=== PATIENT | female | born 1970 | race Caucasian/White ===

== ENCOUNTER 2017-01-12 08:50 | Emergency (ER) | payer OTHER ==
[~2017-01-12] VITALS: Ht 160 cm; Wt 93.0 kg
[~2017-01-12 08:50] MED LIST: /AMIT100TA PO; /DULO30CA; /DULO30CA OR; ABIL2TAB OR; AMIT50TA4 PO; ASACOL; CALCCHW12; CALCCHW12 OR; CETI10TA OR; FOLI1TAB2 PO; FOLI5INJ2 SC; LYRI75CA OR; METH1INJ PO; METH2.5TA PO; MULTIVIT OR; PRED20TA; PRENATAL VIT; TYLENOL #3; TYLENOL #3 OR; XANA0.5T; XANA0.5T OR; XANA0.5T PO; ZOLO50TA
[2017-01-12] MEDS ORDERED: HYDR-3713 PO (09:26)
[2017-01-12] MEDS ORDERED: DULO30CA PO (09:26)
[2017-01-12] MEDS ORDERED: REFR0.5D8 OP (09:26)
[2017-01-12] MEDS ORDERED: ZYRT10CA PO (09:26)
[2017-01-12] MEDS ORDERED: FLUT1LOT EX (09:26)
[2017-01-12] MEDS ORDERED: OMEP40CA2 PO (09:26)
[2017-01-12] MEDS ORDERED: METH2.5TA PO (09:26)
[2017-01-12] MEDS ORDERED: XANA0.5T PO (09:26)
[2017-01-12] MEDS ORDERED: REGL10TA6 PO (09:26)
[2017-01-12] MEDS ORDERED: FOLI800C PO (09:26)
[2017-01-12] MEDS ORDERED: KETO10TAB PO (09:26)
[2017-01-12] MEDS ORDERED: INFL10VL IV (09:26)
[2017-01-12] MEDS ORDERED: AMIT100TA PO (09:26)
[2017-01-12] MEDS ORDERED: IPRATROPIUM 0.5MG/ALBUTEROL 2.5MG INH SOL UD 3ML (DUONEB)(J7620) NEB ONE (10:00)
[2017-01-12] MEDS ORDERED: PERCOCET 5MG/325MG TAB PO ONE (10:00)
[2017-01-12] MEDS ORDERED: predniSONE 20 MG TAB PO ONE (10:00)
[2017-01-12 10:33] VITALS: BP 132/62
--- NOTE | 2017-01-12 10:37 | REP ---
REASON: Cough COMPARISON: Multiple, the latest is 10/27/2016. The lung scott are clear and stable. The heart is not enlarged. Since the last examination, left hilar fullness has developed. The osseous structures are stable and intact. IMPRESSION: Development of left hilar fullness of uncertain etiology. If clinically relevant, obtain contrast enhanced chest CT. Signed by Leland Arvizu DO 01/12/2017 11:42 A
[2017-01-12] MEDS ORDERED: GUAISYP5 PO (10:52)
[2017-01-12] MEDS ORDERED: PRED20TA PO (10:52)
--- NOTE | 2017-01-13 14:07 | ED PDOC ---
Provider Note cxr report faxed to [facility] for fu Shayy Richard MD Jan 13, 2017 14:07
== END 2017-01-12 10:57 | disposition home or self-care (01) ==
LOC: M ED 08:50
DX: J20.9 Acute bronchitis, unspecified (principal); J06.9 Acute upper respiratory infection, unspecified; G89.29 Other chronic pain; D68.62 Lupus anticoagulant syndrome; M79.7 Fibromyalgia; K21.9 Gastro-esophageal reflux disease without esophagitis; J30.81 Allergic rhinitis due to animal (cat) (dog) hair and dander; Z79.899 Other long term (current) drug therapy; Z79.52 Long term (current) use of systemic steroids; F17.210 Nicotine dependence, cigarettes, uncomplicated

== ENCOUNTER → 2017-01-19 | Outpatient (REF) | payer OTHER ==
[~2017-01-19] MED LIST changes: +AMIT100TA PO; +DULO30CA PO; +FLUT1LOT EX; +FOLI800C PO; +GUAISYP5 PO; +HYDR-3713 PO; +INFL10VL IV; +KETO10TAB PO; +OMEP40CA2 PO; +PRED20TA PO; +REFR0.5D8 OP; +REGL10TA6 PO; +ZYRT10CA PO
== END ==
LOC: M LAB REF 11:54
PROVIDERS: ATTEND Physician Assistant Medical
DX: R50.9 Fever, unspecified (principal)

== ENCOUNTER → 2017-02-28 | Outpatient (CLI) | payer OTHER ==
[~2017-02-28] VITALS: Ht 160 cm; Wt 105.2 kg
[~2017-02-28] MED LIST changes: +B-1250TA3 PO; +FOLI5INJ2 PO; +NS 1,000 ML IV SCH; -REFR0.5D8 OP; +REFR0.5D8 OU; +[UNRECOGNIZED DRUG - CODE] PO
--- NOTE | 2017-02-28 13:00 | ROOR ---
Patient Name: Jen Izaguirre Procedure Date: 02/28/2017 12:46 PM Date of : 1970 Age: 46 Room: [facility] Gender: Female Note Status: Finalized Procedure: Upper GI endoscopy + Biopsies Indications: Heartburn, Diarrhea Providers: Tommy Butler MD Referring MD: Valentino CORONEL MD Requesting Provider: Medicines: Monitored Anesthesia Care Complications: No immediate complications. Procedure: Pre-Anesthesia Assessment: - The heart rate, respiratory rate, oxygen saturations, blood pressure, adequacy of pulmonary ventilation, and response to care were monitored throughout the procedure. The Endoscope was introduced through the mouth, and advanced to the second part of duodenum. The upper GI endoscopy was accomplished without difficulty. The patient tolerated the procedure well. Findings: The Z-line was irregular and was found 35 cm from the incisors. Multiple biopsies were obtained with cold forceps for evaluation to rule out Barboza's Esophagus randomly at the gastroesophageal junction. A medium-sized hiatal hernia was present. No other significant abnormalities were identified in a careful examination of the stomach. The exam of the duodenum was otherwise normal. Biopsies for histology were taken with a cold forceps in the first portion of the duodenum and in the second portion of the duodenum for evaluation of celiac disease. The exam was otherwise without abnormality. Impression: - Z-line irregular, 35 cm from the incisors. - Medium-sized hiatal hernia. - The examination was otherwise normal. - Multiple biopsies were obtained at the gastroesophageal junction. - Biopsies were taken with a cold forceps for evaluation of celiac disease. Recommendation: - Patient has a contact number available for emergencies. The signs and symptoms of potential delayed complications were discussed with the patient. Return to normal activities tomorrow. Written discharge instructions were provided to the patient. - High fiber diet. - Discharge patient to home. - Continue present medications. - Await pathology results. - Return to referring physician. - Check Portal Online for Path Results.([email or web address]) - The findings and recommendations were discussed with the patient's family. Tommy Butler MD Tommy Butler MD 02/28/2017 1:00:41 PM This report has been signed electronically. Number of Addenda: 0 Note Initiated On: 02/28/2017 12:46 PM Estimated Blood Loss: Estimated blood loss: none.
--- NOTE | 2017-02-28 13:24 | ROOR ---
Patient Name: Jen Izaguirre Procedure Date: 02/28/2017 12:47 PM Date of : 1970 Age: 46 Room: [facility] Gender: Female Note Status: Finalized Procedure: Colonoscopy to Cecum + ileoscopy + Biopsies Indications: Abdominal pain in the right lower quadrant, Diarrhea Providers: Tommy Butler MD Referring MD: Valentino CORONEL MD Requesting Provider: Medicines: Monitored Anesthesia Care Complications: No immediate complications. Procedure: Pre-Anesthesia Assessment: - The heart rate, respiratory rate, oxygen saturations, blood pressure, adequacy of pulmonary ventilation, and response to care were monitored throughout the procedure. The Colonoscope was introduced through the anus and advanced to the cecum, identified by appendiceal orifice and ileocecal valve. The colonoscopy was performed without difficulty. The patient tolerated the procedure well. The quality of the bowel preparation was excellent. Findings: The perianal and digital rectal examinations were normal. Non-bleeding internal hemorrhoids were found during retroflexion. The hemorrhoids were small and Grade I (internal hemorrhoids that do not prolapse). No other significant abnormalities were identified in a careful examination of the remainder of the colon. Background biopsies were taken for histology with a cold forceps from the ascending colon, transverse colon, descending colon and rectosigmoid colon. These biopsy specimens were sent to Pathology. The exam was otherwise without abnormality on direct and retroflexion views. Impression: - Non-bleeding internal hemorrhoids. - The examination was otherwise normal on direct and retroflexion views. - Background biopsies were taken from the ascending colon, transverse colon, descending colon and rectosigmoid colon. - The exam was otherwise normal to the cecum. - Ileal ulcer with clean base. Recommendation: - Discharge patient to home. - Continue present medications. - Await pathology results. - Check Portal Online for Path Results.([email or web address]) - Return to referring physician. - The findings and recommendations were discussed with the patient's family. Tommy Butler MD Tommy Butler MD 02/28/2017 1:23:52 PM This report has been signed electronically. Number of Addenda: 0 Note Initiated On: 02/28/2017 12:47 PM Estimated Blood Loss: Estimated blood loss: none.
[2017-02-28 13:37] VITALS: BP 150/71
== END | disposition home or self-care (01) ==
LOC: M OPP 12:12
PROVIDERS: ATTEND Internal Medicine Gastroenterology
DX: R10.31 Right lower quadrant pain (principal); R19.7 Diarrhea, unspecified; K64.0 First degree hemorrhoids; R12 Heartburn; K22.8 Other specified diseases of esophagus; K44.9 Diaphragmatic hernia without obstruction or gangrene; K51.90 Ulcerative colitis, unspecified, without complications; R23.3 Spontaneous ecchymoses; M06.9 Rheumatoid arthritis, unspecified; M54.9 Dorsalgia, unspecified; M79.7 Fibromyalgia; M32.9 Systemic lupus erythematosus, unspecified; F41.9 Anxiety disorder, unspecified; G43.909 Migraine, unspecified, not intractable, without status migrainosus; R06.83 Snoring; Z87.891 Personal history of nicotine dependence; Z91.048 Other nonmedicinal substance allergy status; Z79.899 Other long term (current) drug therapy; Z80.9 Family history of malignant neoplasm, unspecified

== ENCOUNTER → 2017-03-14 | Outpatient (REF) | payer OTHER ==
[~2017-03-14] MED LIST changes: -NS 1,000 ML IV SCH
== END ==
LOC: M LAB REF 16:19
PROVIDERS: ATTEND Physician Assistant
DX: J02.9 Acute pharyngitis, unspecified (principal)

== ENCOUNTER → 2017-04-27 | Outpatient (CLI) | payer OTHER ==
[~2017-04-27] MED LIST changes: +CLEO300C2 PO
--- NOTE | 2017-04-27 22:27 | ECGEPIP ---
Stationary ECG Study [facility] Test Date: 2017-04-27 Pat Name: RONALD VANEGAS Department: Room: - Gender: F Branch Manager: RF : 1970 Requested By: Valentino Huynh Order Number: [id number] Reading MD: Haroon Ram Measurements Intervals [place] Rate: 101 P: 68 W[place]: 149 QRS: 56 QRSD: 89 T: 51 QT: 347 QTc: 452 Interpretive Statements Sinus tachycardia Minor repolarization abnormalities Comparison tracing not available Electronically Signed On 04-27-2017 22:27:20 EDT by Haroon Ram
== END ==
LOC: M EKG 11:19
PROVIDERS: ATTEND Family Medicine Addiction Medicine
DX: R06.09 Other forms of dyspnea (principal)

== ENCOUNTER → 2017-04-27 | Outpatient (REF) | payer OTHER ==
[2017-04-27 14:06] LABS: ALBUMIN 3.4 GM/DL (3.2-5.2); ALKALINE PHOSPHATASE 89 U/L (45-117); ALT/SGPT 33 U/L (12-78); ANION GAP 7 MEQ/L (8-16); AST/SGOT 23 U/L (15-37); BILIRUBIN,TOTAL 0.3 MG/DL (0.2-1.0); BLOOD UREA NITROGEN 12 MG/DL (7-18); CALCIUM LEVEL 7.9 MG/DL (8.5-10.1); CARBON DIOXIDE LEVEL 23 MEQ/L (21-32); CHLORIDE LEVEL 105 MEQ/L (98-107); CHOLESTEROL LEVEL 148 MG/DL (<200); CREATININE FOR GFR 0.79 MG/DL (0.55-1.02); GLOMERULAR FILTRATION RATE > 60.0 (>58); GLUCOSE, FASTING 94 MG/DL (70-105); POTASSIUM SERUM 4.4 MEQ/L (3.5-5.1); SODIUM LEVEL 135 MEQ/L (136-145); TOTAL PROTEIN 6.5 GM/DL (6.4-8.2); TRIGLYCERIDES LEVEL 116 MG/DL (<150)
== END ==
LOC: M LAB REF 12:52
PROVIDERS: ATTEND Family Medicine Addiction Medicine
DX: E78.5 Hyperlipidemia, unspecified (principal)

== ENCOUNTER 2017-05-04 09:23 | Emergency (ER) | payer OTHER ==
[~2017-05-04] VITALS: Ht 160 cm; Wt 107.2 kg
[~2017-05-04 09:23] MED LIST changes: -CLEO300C2 PO; -FOLI1TAB2 PO; +FOLI1TAB4 PO; +HAIR1CAP2 PO; -[UNRECOGNIZED DRUG - CODE] PO
--- NOTE | 2017-05-04 10:26 | REP ---
LEFT ANKLE, FOUR VIEWS: Four views left ankle are performed. There is no acute fracture or dislocation. The ankle mortise is anatomic. There is moderate inferior calcaneal spurring and mild posterior calcaneal spurring. IMPRESSION: No fracture or dislocation. Calcaneal spurring. Signed by Aleksander Melo MD 05/05/2017 05:07 P
--- NOTE | 2017-05-04 10:36 | REP ---
LEFT FOOT SERIES: Four views of the left foot performed. Possible nondisplaced avulsion fracture seen at the base of the 5th metatarsal. This could be old. No other acute fracture or dislocation is seen. There is moderate inferior calcaneal spurring and mild posterior calcaneal spurring. IMPRESSION: Possible nondisplaced avulsion fracture at the base of the 5th metatarsal. This could be old. No other evidence of acute fracture or dislocation. Signed by Aleksander Melo MD 05/05/2017 05:07 P
[2017-05-04] MEDS ORDERED: PRED20TA PO (10:52)
[2017-05-04] MEDS ORDERED: CLEO300C2 PO (10:52)
[2017-05-04 11:05] VITALS: BP 101/56
== END 2017-05-04 11:13 | disposition home or self-care (01) ==
LOC: M ED 10:15
DX: M76.62 Achilles tendinitis, left leg (principal); M77.32 Calcaneal spur, left foot; J45.909 Unspecified asthma, uncomplicated; F41.9 Anxiety disorder, unspecified; K52.9 Noninfective gastroenteritis and colitis, unspecified; Z79.899 Other long term (current) drug therapy; J30.81 Allergic rhinitis due to animal (cat) (dog) hair and dander

== ENCOUNTER 2017-05-11 09:07 | Outpatient (CLI) | payer OTHER ==
[~2017-05-11] VITALS: Ht 160 cm; Wt 106.0 kg
[~2017-05-11 09:07] MED LIST changes: +CLEO300C2 PO; +diphenhydrAMINE 25 MG CAP PO SCH
[2017-05-11] MEDS ORDERED: NS 1,000 ML IV SCH (09:15)
[2017-05-11] MEDS ORDERED: inFLIXimab INJECTION 800 MG in NS 170 ML IV ONE (09:15)
== END 2017-05-11 12:00 | disposition home or self-care (01) ==
LOC: M INFU 09:07
PROVIDERS: ATTEND Internal Medicine Gastroenterology
DX: K51.90 Ulcerative colitis, unspecified, without complications (principal); F17.210 Nicotine dependence, cigarettes, uncomplicated; Z79.899 Other long term (current) drug therapy

== ENCOUNTER 2017-05-27 10:15 | Outpatient (CLI) | payer OTHER ==
[2017-05-27] MEDS ORDERED: NS 1,000 ML IV SCH (11:00)
[2017-05-27] MEDS ORDERED: inFLIXimab INJECTION 800 MG in NS 170 ML IV ONE (11:00)
== END 2017-05-27 13:15 | disposition home or self-care (01) ==
LOC: M INFU 10:15
PROVIDERS: ATTEND Internal Medicine Gastroenterology
DX: K51.90 Ulcerative colitis, unspecified, without complications (principal); Z72.0 Tobacco use; Z79.899 Other long term (current) drug therapy

== ENCOUNTER 2017-07-07 08:23 | Outpatient (CLI) | payer OTHER ==
[~2017-07-07] VITALS: Ht 160 cm; Wt 106.0 kg
[~2017-07-07 08:23] MED LIST changes: +diphenhydrAMINE 25 MG CAP PO SCH
[2017-07-07] MEDS ORDERED: NS 1,000 ML IV SCH (08:30)
[2017-07-07] MEDS ORDERED: inFLIXimab INJECTION 800 MG in NS 170 ML IV ONE (09:00)
== END 2017-07-07 11:25 | disposition home or self-care (01) ==
LOC: M INFU 08:23
PROVIDERS: ATTEND Internal Medicine Gastroenterology
DX: K51.90 Ulcerative colitis, unspecified, without complications (principal); Z72.0 Tobacco use; Z79.899 Other long term (current) drug therapy
CPT/HCPCS: 96413; 96415; J1745

== ENCOUNTER → 2017-07-07 | Outpatient (CLI) | payer OTHER ==
[~2017-07-07] MED LIST changes: -diphenhydrAMINE 25 MG CAP PO SCH
[2017-07-07 10:21] LABS: BASO % 0.6 % (0.0-1.0); EOS # 0.3 K/mm3 (0.0-0.50); EOS % 5.1 % (0.0-3.0); LARGE UNSTAINED CELL # 0.2 K/mm3 (0.0-0.4); LARGE UNSTAINED CELL % 3.9 % (0.0-4.0); LYMPH # 1.7 K/mm3 (1.5-4.5); LYMPH % 31.6 % (24.0-44.0); MEAN CORPUSCULAR HEMOGLOBIN 34.5 pg (27.0-33.0); MEAN CORPUSCULAR HGB CONC 34.3 g/dl (32.0-36.5); MEAN CORPUSCULAR VOLUME 100.8 fl (80.0-96.0); MONO # 0.4 K/mm3 (0.0-0.8); MONO % 7.5 % (0.0-5.0); NEUTROPHILS # 2.7 K/mm3 (1.8-7.7); NEUTROPHILS % 51.3 % (36.0-66.0); PLATELET COUNT, AUTOMATED 243 k/mm3 (150-450); WHITE BLOOD COUNT 5.3 K/mm3 (4.0-10.0)
[2017-07-07 11:02] LABS: ALBUMIN 3.1 GM/DL (3.2-5.2); ALBUMIN/GLOBULIN RATIO 0.97 (1.00-1.93); ALKALINE PHOSPHATASE 75 U/L (45-117); ALT/SGPT 23 U/L (12-78); ANION GAP 9 MEQ/L (8-16); AST/SGOT 14 U/L (15-37); BILIRUBIN,TOTAL 0.2 MG/DL (0.2-1.0); BLOOD UREA NITROGEN 15 MG/DL (7-18); CARBON DIOXIDE LEVEL 24 MEQ/L (21-32); CHLORIDE LEVEL 109 MEQ/L (98-107); CREATININE FOR GFR 0.81 MG/DL (0.55-1.02); GLOMERULAR FILTRATION RATE > 60.0 (>58); GLUCOSE, FASTING 95 MG/DL (70-105); POTASSIUM SERUM 4.3 MEQ/L (3.5-5.1); SODIUM LEVEL 142 MEQ/L (136-145); TOTAL PROTEIN 6.3 GM/DL (6.4-8.2)
--- NOTE | 2017-07-07 12:22 | REP ---
Chest two views HISTORY: Cough Comparison: 01/12/2017 The lungs are clear. The heart is normal in size. The pulmonary vasculature is normal in appearance. The bony structure is intact. IMPRESSION: No acute disease. Signed by Marc Everett MD 07/07/2017 12:13 P
== END ==
LOC: M LAB 09:35
PROVIDERS: ATTEND Family Medicine Addiction Medicine
DX: R60.9 Edema, unspecified (principal)

== ENCOUNTER 2017-08-18 11:25 | Outpatient (CLI) | payer OTHER ==
[~2017-08-18 11:25] MED LIST changes: -diphenhydrAMINE 25 MG CAP PO SCH
[2017-08-18] MEDS ORDERED: NS 1,000 ML IV SCH (11:45)
[2017-08-18] MEDS ORDERED: diphenhydrAMINE 25 MG CAP PO ONE (11:45)
[2017-08-18] MEDS ORDERED: inFLIXimab INJECTION 800 MG in NS 170 ML IV ONE (12:00)
== END 2017-08-18 14:20 | disposition home or self-care (01) ==
LOC: M INFU 11:25
PROVIDERS: ATTEND Internal Medicine Gastroenterology
DX: K51.90 Ulcerative colitis, unspecified, without complications (principal); Z72.0 Tobacco use; Z79.899 Other long term (current) drug therapy
CPT/HCPCS: 96413; 96415; J1745

== ENCOUNTER 2017-09-29 11:26 | Outpatient (CLI) | payer OTHER ==
[~2017-09-29] VITALS: Ht 160 cm; Wt 105.0 kg
[2017-09-29] MEDS ORDERED: diphenhydrAMINE 25 MG CAP PO ONE (11:45)
[2017-09-29] MEDS ORDERED: INFLIXIMAB BIOSIMILAR 800 MG in NS 170 ML IV ONE (11:45)
[2017-09-29] MEDS ORDERED: ACETAMINOPHEN TAB 650MG DOSE (2X325MG) PO ONE (11:45)
[2017-09-29] MEDS ORDERED: NS 1,000 ML IV SCH (11:45)
== END 2017-09-29 15:05 | disposition home or self-care (01) ==
LOC: M INFU 11:26
PROVIDERS: ATTEND Internal Medicine Gastroenterology
DX: K51.90 Ulcerative colitis, unspecified, without complications (principal); Z72.0 Tobacco use; Z79.52 Long term (current) use of systemic steroids; Z79.899 Other long term (current) drug therapy; Z91.048 Other nonmedicinal substance allergy status
CPT/HCPCS: 96413; 96415; Q5102

== ENCOUNTER → 2017-09-29 | Outpatient (CLI) | payer OTHER ==
[2017-09-29 13:24] LABS: ALBUMIN 3.2 GM/DL (3.2-5.2); ALBUMIN/GLOBULIN RATIO 0.97 (1.00-1.93); ALKALINE PHOSPHATASE 77 U/L (45-117); ALT/SGPT 37 U/L (12-78); ANION GAP 8 MEQ/L (8-16); AST/SGOT 30 U/L (7-37); BILIRUBIN,TOTAL 0.3 MG/DL (0.2-1.0); BLOOD UREA NITROGEN 13 MG/DL (7-18); CALCIUM LEVEL 8.4 MG/DL (8.5-10.1); CARBON DIOXIDE LEVEL 26 MEQ/L (21-32); CHLORIDE LEVEL 106 MEQ/L (98-107); CREATININE FOR GFR 0.84 MG/DL (0.55-1.02); GLOMERULAR FILTRATION RATE > 60.0 (>58); GLUCOSE, FASTING 103 MG/DL (70-105); POTASSIUM SERUM 4.1 MEQ/L (3.5-5.1); SODIUM LEVEL 140 MEQ/L (136-145); TOTAL PROTEIN 6.5 GM/DL (6.4-8.2)
== END ==
LOC: M LAB 11:56
PROVIDERS: ATTEND Family Medicine Addiction Medicine
DX: E83.51 Hypocalcemia (principal)

== ENCOUNTER 2017-11-13 10:12 | Inpatient (IN) | payer OTHER ==
[2017-11-13] MEDS: ONDANSETRON 4MG/2ML VIAL (J2405) IV (11:39)
[2017-11-13] MEDS: MORPHINE 4 MG/ML 1ML SYRINGE IV ×2 (11:39→13:42)
[2017-11-13 11:51] LABS: VENOUS BASE EXCESS -1.6 (-2.0-2.0); VENOUS HCO3 21.5 MEQ/L (23.0-27.0); VENOUS O2 SATURATION 74.2 % (60.0-80.0); VENOUS PARTIAL PRESSURE CO2 31.9 mmHg (38.0-50.0); VENOUS PARTIAL PRESSURE O2 40.8 mmHg (30.0-50.0); VENOUS PH 7.447 UNITS (7.330-7.430); VENOUS STANDARD HCO3 22.6 MEQ/L; VENOUS TOTAL CO2 22.5 MEQ/L (24.0-28.0)
[2017-11-13 11:52] LABS: HEMATOCRIT 36.7 % (36.0-47.0); HEMOGLOBIN 12.9 g/dl (12.0-16.0); MEAN CORPUSCULAR HEMOGLOBIN 34.2 pg (27.0-33.0); MEAN CORPUSCULAR HGB CONC 35.1 g/dl (32.0-36.5); MEAN CORPUSCULAR VOLUME 97.3 fl (80.0-96.0); PLATELET COUNT, AUTOMATED 226 10^3/uL (150-450); RED BLOOD COUNT 3.77 10^6/uL (4.00-5.40); RED CELL DISTRIBUTION WIDTH 14.8 % (11.5-14.5); WHITE BLOOD COUNT 6.9 10^3/uL (4.0-10.0)
[2017-11-13 12:04] LABS: CONTROL LINE HCG INT CTR LINE PRESENT; HCG, SERUM QUALITATIVE NEGATIVE (NEGATIVE)
[2017-11-13 12:11] LABS: LACTIC ACID SEPSIS PROTOCOL 1.3 MMOL/L (0.4-2.0)
[2017-11-13 12:12] LABS: ADD MANUAL DIFFER YES; ANION GAP 8 MEQ/L (8-16); ATYP LYMPH POS FLAG; BLOOD UREA NITROGEN 13 MG/DL (7-18); CARBON DIOXIDE LEVEL 27 MEQ/L (21-32); CHLORIDE LEVEL 104 MEQ/L (98-107); CPK CREATINE PHOSPHOKINASE 63 U/L (26-192); CREATININE FOR GFR 0.81 MG/DL (0.55-1.02); DIFF SLIDE NUMBER 125; GLOMERULAR FILTRATION RATE > 60.0 (>58); GLUCOSE, FASTING 92 MG/DL (70-105); MB/CK RELATIVE INDEX 1.58 (< OR =4); POSITIVE MORPH POS FLAG; POTASSIUM SERUM 4.3 MEQ/L (3.5-5.1); SODIUM LEVEL 139 MEQ/L (136-145); TROPONIN I < 0.02 NG/ML (< 0.10)
[2017-11-13 12:17] LABS: ANISOCYTOSIS 1+; ATYPICAL LYMPH 5 % (0-5); BANDS 2 % (< 11); LYMPHOCYTES 15 % (16-52); MONOCYTES 11 % (0-8); NEUTROPHILS 67 % (35-75); PLATELET ESTIMATE NORMAL (NORMAL)
[2017-11-13 12:19] LABS: ALBUMIN 3.2 GM/DL (3.2-5.2); ALBUMIN/GLOBULIN RATIO 0.94 (1.00-1.93); ALKALINE PHOSPHATASE 93 U/L (45-117); ALT/SGPT 39 U/L (12-78); AST/SGOT 33 U/L (7-37); BILIRUBIN,DIRECT 0.1 MG/DL (0.0-0.2); BILIRUBIN,TOTAL 0.3 MG/DL (0.2-1.0); LIPASE 111 U/L (73-393); NT-PRO BNP 22 PG/ML (<125); TOTAL PROTEIN 6.6 GM/DL (6.4-8.2)
[2017-11-13] MEDS ORDERED: ISOVUE-370 76% 100ML VIAL (Q9967) As Ordered (12:32)
[2017-11-13] MEDS: CEFTRIAXONE SOD 1 GM in APPROPRIATE DILUENT 1 EA IV (14:19)
[2017-11-13] MEDS: ALBUTEROL SULFATE 2.5 MG/0.5 ML INH NEB SOLN NEB (14:37)
[2017-11-13] MEDS: NS 1,000 ML IV ×2 (15:06→16:30)
[2017-11-13] MEDS: AZITHROMYCIN INJ 500 MG, VIAL MATE ADAPTER 1 EACH in D5W 250 ML IV (15:07)
[2017-11-13] MEDS ORDERED: LEVALBUTEROL 1.25 MG/0.5 ML CONCENTRATE NEB INH (16:15)
[2017-11-13] MEDS ORDERED: BISACODYL 5 MG TAB PO (16:15)
[2017-11-13] MEDS ORDERED: ONDANSETRON 4MG/2ML VIAL (J2405) IV (16:15)
[2017-11-13] MEDS ORDERED: BISACODYL 10 MG SUPP PR (16:15)
[2017-11-13] MEDS ORDERED: METOCLOPRAMIDE 10 MG TAB PO (16:30)
[2017-11-13] MEDS: methylPREDNISolone INJ 125 MG/2 ML VIAL (J2930) IV (17:31)
[2017-11-13] MEDS: KETOROLAC TROMETHAMINE 10 MG TAB PO (18:11)
[2017-11-13] MEDS: LEVALBUTEROL 1.25 MG/0.5 ML CONCENTRATE NEB INH (19:23)
[2017-11-13] MEDS: OMEPRAZOLE 20 MG CAP PO (20:53)
[2017-11-13] MEDS: HEPARIN SOD (PORCINE) 5000 UNITS/ML VIAL SC (20:53)
[2017-11-13] MEDS: ACETAMINOPHEN TAB 650MG DOSE (2X325MG) PO (20:53)
[2017-11-13] MEDS: FOLIC ACID 1 MG TAB PO (20:53)
[2017-11-13] MEDS: DULoxetine 30 MG CAP (CYMBALTA) PO (20:53)
[2017-11-13] MEDS: AMITRIPTYLINE 50 MG TAB PO (20:54)
[2017-11-13] MEDS: ALPRAZolam 0.5 MG TAB PO (20:54)
[2017-11-14] MEDS: NS 1,000 ML IV ×2 (02:30→12:50)
[2017-11-14] MEDS: methylPREDNISolone INJ 125 MG/2 ML VIAL (J2930) IV ×3 (02:30→17:13)
[2017-11-14] MEDS: HEPARIN SOD (PORCINE) 5000 UNITS/ML VIAL SC ×4 (06:00→21:11)
[2017-11-14] MEDS: LEVALBUTEROL 1.25 MG/0.5 ML CONCENTRATE NEB INH ×4 (06:16→19:30)
[2017-11-14 06:42] LABS: HEMATOCRIT 36.5 % (36.0-47.0); HEMOGLOBIN 12.4 g/dl (12.0-16.0); MEAN CORPUSCULAR HEMOGLOBIN 33.2 pg (27.0-33.0); MEAN CORPUSCULAR VOLUME 97.9 fl (80.0-96.0); PLATELET COUNT, AUTOMATED 212 10^3/uL (150-450); RED BLOOD COUNT 3.73 10^6/uL (4.00-5.40); RED CELL DISTRIBUTION WIDTH 14.2 % (11.5-14.5); WHITE BLOOD COUNT 5.3 10^3/uL (4.0-10.0)
[2017-11-14 07:10] LABS: ANION GAP 6 MEQ/L (8-16); BLOOD UREA NITROGEN 12 MG/DL (7-18); CALCIUM LEVEL 8.2 MG/DL (8.5-10.1); CARBON DIOXIDE LEVEL 24 MEQ/L (21-32); CHLORIDE LEVEL 108 MEQ/L (98-107); CREATININE FOR GFR 0.65 MG/DL (0.55-1.02); GLOMERULAR FILTRATION RATE > 60.0 (>58); GLUCOSE, FASTING 142 MG/DL (70-105); POTASSIUM SERUM 4.1 MEQ/L (3.5-5.1); SODIUM LEVEL 138 MEQ/L (136-145)
[2017-11-14] MEDS: DULoxetine 30 MG CAP (CYMBALTA) PO ×2 (09:36→21:11)
[2017-11-14 09:41] LABS: ABG BASE EXCESS -3.4 (-2.0-2.0); ABG HCO3 20.6 MEQ/L (22.0-26.0); ABG O2 SATURATION 90.5 % (95.0-99.0); ABG PARTIAL PRESSURE CO2 33.8 mmHg (35.0-45.0); ABG PARTIAL PRESSURE O2 62.7 mmHg (75.0-100.0); ABG STANDARD HCO3 21.5 MEQ/L (22.0-26.0); ABG TOTAL CO2 21.6 MEQ/L (22.0-29.0); ABG pH (ARTERIAL) 7.402 UNITS (7.350-7.450)
[2017-11-14 12:15] LABS: LDH LACTATE DEHYDROGENASE 372 U/L (84-246)
[2017-11-14 14:20] LABS: HIV 1&2 SCREEN CENTAUR NEGATIVE (NEGATIVE)
[2017-11-14] MEDS: guaiFENesin ER 600 MG TAB PO ×2 (15:00→21:11)
[2017-11-14] MEDS: CEFTRIAXONE SOD 1 GM in APPROPRIATE DILUENT 1 EA IV (15:20)
[2017-11-14] MEDS: ALPRAZolam 0.5 MG TAB PO (16:33)
[2017-11-14] MEDS: AZITHROMYCIN INJ 500 MG, VIAL MATE ADAPTER 1 EACH in D5W 250 ML IV (17:13)
[2017-11-14] MEDS: OMEPRAZOLE 20 MG CAP PO (21:12)
[2017-11-14] MEDS: FOLIC ACID 1 MG TAB PO (21:12)
[2017-11-14] MEDS: AMITRIPTYLINE 50 MG TAB PO (21:12)
[2017-11-15] MEDS: methylPREDNISolone INJ 125 MG/2 ML VIAL (J2930) IV ×3 (01:46→17:20)
[2017-11-15] MEDS: HEPARIN SOD (PORCINE) 5000 UNITS/ML VIAL SC ×3 (06:41→21:11)
[2017-11-15 07:14] LABS: HEMATOCRIT 36.5 % (36.0-47.0); HEMOGLOBIN 12.5 g/dl (12.0-16.0); MEAN CORPUSCULAR HGB CONC 34.2 g/dl (32.0-36.5); MEAN CORPUSCULAR VOLUME 99.2 fl (80.0-96.0); PLATELET COUNT, AUTOMATED 274 10^3/uL (150-450); RED BLOOD COUNT 3.68 10^6/uL (4.00-5.40); RED CELL DISTRIBUTION WIDTH 14.7 % (11.5-14.5); WHITE BLOOD COUNT 15.9 10^3/uL (4.0-10.0)
[2017-11-15 07:36] LABS: ANION GAP 8 MEQ/L (8-16); BLOOD UREA NITROGEN 16 MG/DL (7-18); CALCIUM LEVEL 8.3 MG/DL (8.5-10.1); CARBON DIOXIDE LEVEL 26 MEQ/L (21-32); CHLORIDE LEVEL 108 MEQ/L (98-107); CREATININE FOR GFR 0.77 MG/DL (0.55-1.02); GLOMERULAR FILTRATION RATE > 60.0 (>58); GLUCOSE, FASTING 136 MG/DL (70-105); POTASSIUM SERUM 4.5 MEQ/L (3.5-5.1); SODIUM LEVEL 142 MEQ/L (136-145)
[2017-11-15] MEDS: LEVALBUTEROL 1.25 MG/0.5 ML CONCENTRATE NEB INH ×4 (07:45→19:09)
[2017-11-15] MEDS: guaiFENesin ER 600 MG TAB PO ×2 (08:47→21:11)
[2017-11-15] MEDS: DULoxetine 30 MG CAP (CYMBALTA) PO ×2 (08:47→21:11)
[2017-11-15] MEDS: FLUTICASONE PROP 0.05% NASAL SPRAY 16 GM (FLONASE) (12:13)
[2017-11-15] MEDS: CEFTRIAXONE SOD 1 GM in APPROPRIATE DILUENT 1 EA IV (12:14)
[2017-11-15] MEDS: AZITHROMYCIN INJ 500 MG, VIAL MATE ADAPTER 1 EACH in D5W 250 ML IV (14:03)
[2017-11-15] MEDS: LevoFLOXacin IV 500 MG in APPROPRIATE DILUENT 1 EA IV (17:20)
[2017-11-15] MEDS: AMITRIPTYLINE 50 MG TAB PO (21:11)
[2017-11-15] MEDS: OMEPRAZOLE 20 MG CAP PO (21:11)
[2017-11-15] MEDS: FOLIC ACID 1 MG TAB PO (21:11)
[2017-11-15] MEDS: ALPRAZolam 0.5 MG TAB PO (21:11)
[2017-11-16] MEDS: methylPREDNISolone INJ 125 MG/2 ML VIAL (J2930) IV (01:17)
[2017-11-16] MEDS: HEPARIN SOD (PORCINE) 5000 UNITS/ML VIAL SC ×3 (05:35→20:17)
[2017-11-16 07:05] LABS: HEMATOCRIT 35.7 % (36.0-47.0); HEMOGLOBIN 12.2 g/dl (12.0-16.0); MEAN CORPUSCULAR HEMOGLOBIN 34.1 pg (27.0-33.0); MEAN CORPUSCULAR HGB CONC 34.2 g/dl (32.0-36.5); MEAN CORPUSCULAR VOLUME 99.7 fl (80.0-96.0); PLATELET COUNT, AUTOMATED 261 10^3/uL (150-450); RED BLOOD COUNT 3.58 10^6/uL (4.00-5.40); RED CELL DISTRIBUTION WIDTH 14.5 % (11.5-14.5); WHITE BLOOD COUNT 15.9 10^3/uL (4.0-10.0)
[2017-11-16 07:20] LABS: ANION GAP 6 MEQ/L (8-16); BLOOD UREA NITROGEN 20 MG/DL (7-18); CALCIUM LEVEL 8.2 MG/DL (8.5-10.1); CARBON DIOXIDE LEVEL 27 MEQ/L (21-32); CHLORIDE LEVEL 106 MEQ/L (98-107); CREATININE FOR GFR 0.72 MG/DL (0.55-1.02); GLOMERULAR FILTRATION RATE > 60.0 (>58); GLUCOSE, FASTING 123 MG/DL (70-105); POTASSIUM SERUM 4.9 MEQ/L (3.5-5.1); SODIUM LEVEL 139 MEQ/L (136-145)
[2017-11-16] MEDS: LEVALBUTEROL 1.25 MG/0.5 ML CONCENTRATE NEB INH ×4 (07:25→19:46)
[2017-11-16] MEDS: DULoxetine 30 MG CAP (CYMBALTA) PO ×2 (07:56→20:17)
[2017-11-16] MEDS: guaiFENesin ER 600 MG TAB PO ×2 (07:57→20:17)
[2017-11-16] MEDS: FLUTICASONE PROP 0.05% NASAL SPRAY 16 GM (FLONASE) (08:01)
[2017-11-16] MEDS: LevoFLOXacin 500 MG TABLET PO (12:10)
[2017-11-16] MEDS: predniSONE 20 MG TAB PO (12:10)
[2017-11-16] MEDS ORDERED: methylPREDNISolone INJ 125 MG/2 ML VIAL (J2930) IV (14:00)
[2017-11-16] MEDS: OMEPRAZOLE 20 MG CAP PO (20:16)
[2017-11-16] MEDS: ALPRAZolam 0.5 MG TAB PO (20:16)
[2017-11-16] MEDS: FOLIC ACID 1 MG TAB PO (20:17)
[2017-11-16] MEDS: AMITRIPTYLINE 50 MG TAB PO (20:17)
[2017-11-17] MEDS: LevoFLOXacin 500 MG TABLET PO (05:17)
[2017-11-17] MEDS: HEPARIN SOD (PORCINE) 5000 UNITS/ML VIAL SC (05:17)
[2017-11-17 06:14] LABS: HEMATOCRIT 35.4 % (36.0-47.0); HEMOGLOBIN 12.1 g/dl (12.0-16.0); MEAN CORPUSCULAR HEMOGLOBIN 33.8 pg (27.0-33.0); MEAN CORPUSCULAR HGB CONC 34.2 g/dl (32.0-36.5); MEAN CORPUSCULAR VOLUME 98.9 fl (80.0-96.0); PLATELET COUNT, AUTOMATED 268 10^3/uL (150-450); RED BLOOD COUNT 3.58 10^6/uL (4.00-5.40); RED CELL DISTRIBUTION WIDTH 14.5 % (11.5-14.5); WHITE BLOOD COUNT 15.5 10^3/uL (4.0-10.0)
[2017-11-17 06:43] LABS: ANION GAP 7 MEQ/L (8-16); BLOOD UREA NITROGEN 22 MG/DL (7-18); CALCIUM LEVEL 8.3 MG/DL (8.5-10.1); CARBON DIOXIDE LEVEL 28 MEQ/L (21-32); CHLORIDE LEVEL 105 MEQ/L (98-107); CREATININE FOR GFR 0.79 MG/DL (0.55-1.02); GLOMERULAR FILTRATION RATE > 60.0 (>58); GLUCOSE, FASTING 86 MG/DL (70-105); POTASSIUM SERUM 4.1 MEQ/L (3.5-5.1); SODIUM LEVEL 140 MEQ/L (136-145)
[2017-11-17] MEDS: LEVALBUTEROL 1.25 MG/0.5 ML CONCENTRATE NEB INH ×2 (07:17→11:27)
[2017-11-17 08:07] LABS: QUANTIFERON GOLD TB Negative (Negative); TB Test (QFT) Antigen 0.09 IU/mL (.); TB Test (QFT) Mitogen >10.00 IU/mL (.); TB Test (QFT) Nil 0.09 IU/mL (.)
[2017-11-17] MEDS: DULoxetine 30 MG CAP (CYMBALTA) PO (08:46)
[2017-11-17] MEDS: predniSONE 20 MG TAB PO (08:46)
[2017-11-17] MEDS: guaiFENesin ER 600 MG TAB PO (08:46)
[2017-11-17] MEDS: FLUTICASONE PROP 0.05% NASAL SPRAY 16 GM (FLONASE) (08:47)
[2017-11-20 14:12] LABS: ASPERGILLUS FLAVUS ABY Negative (Neg:<1:1); ASPERGILLUS FUMIGATUS ABY Negative (Neg:<1:1); ASPERGILLUS NIGER ABY Negative (Neg:<1:1); BLASTOMYCES ANTIBODY LEVEL Negative (Neg:<1:1); CRYPTOCOCCUS ANTIGEN SER Negative (Negative); M003-IGE ASPERGILLUS fumigatus <0.10 kU/L (Class 0)
== END 2017-11-17 13:21 | disposition home or self-care (01) | DRG 139 ==
LOC: M ED 10:12 → M ED INP 16:12 → M MSPAV 17:18
DX: J15.9 Unspecified bacterial pneumonia (principal); J96.01 Acute respiratory failure with hypoxia; D84.9 Immunodeficiency, unspecified; M32.9 Systemic lupus erythematosus, unspecified; E66.01 Morbid (severe) obesity due to excess calories; G43.909 Migraine, unspecified, not intractable, without status migrainosus; K21.9 Gastro-esophageal reflux disease without esophagitis; J30.81 Allergic rhinitis due to animal (cat) (dog) hair and dander; F41.9 Anxiety disorder, unspecified; Z87.891 Personal history of nicotine dependence; Z79.899 Other long term (current) drug therapy; Z98.51 Tubal ligation status

== ENCOUNTER → 2017-11-23 | Outpatient (CLI) | payer OTHER | LOC: M SMT 14:37 | DX: J18.9 Pneumonia, unspecified organism (principal) | CPT/HCPCS: 71046 ==

== ENCOUNTER → 2017-12-08 | Outpatient (CLI) | payer OTHER ==
[~2017-12-08] MED LIST changes: -/AMIT100TA PO; -/DULO30CA; -/DULO30CA OR; -ABIL2TAB OR; -AMIT100TA PO; -AMIT50TA4 PO; -ASACOL; -B-1250TA3 PO; -CALCCHW12; -CALCCHW12 OR; -CETI10TA OR; -CLEO300C2 PO; -DULO30CA PO; -FLUT1LOT EX; -FOLI1TAB4 PO; -FOLI5INJ2 PO; -FOLI5INJ2 SC; -FOLI800C PO; -GUAISYP5 PO; -HAIR1CAP2 PO; -HYDR-3713 PO; -INFL10VL IV; -KETO10TAB PO; -LYRI75CA OR; -METH1INJ PO; -METH2.5TA PO; +METHACHOLINE KIT (J7674) INH; -MULTIVIT OR; -OMEP40CA2 PO; -PRED20TA; -PRED20TA PO; -PRENATAL VIT; -REFR0.5D8 OU; -REGL10TA6 PO; -TYLENOL #3; -TYLENOL #3 OR; -XANA0.5T; -XANA0.5T OR; -XANA0.5T PO; -ZOLO50TA; -ZYRT10CA PO
== END ==
LOC: M CARPUL 12:46
DX: R06.00 Dyspnea, unspecified (principal)
CPT/HCPCS: J7674

== ENCOUNTER 2017-12-29 07:59 | Outpatient (CLI) | payer OTHER ==
[2017-12-29] MEDS: diphenhydrAMINE 25 MG CAP PO (08:30)
[2017-12-29] MEDS: ACETAMINOPHEN TAB 650MG DOSE (2X325MG) PO (08:31)
[2017-12-29] MEDS: NS 1,000 ML IV (08:43)
[2017-12-29] MEDS: INFLIXIMAB BIOSIMILAR 800 MG in NS 170 ML IV (08:43)
== END 2017-12-29 11:15 | disposition home or self-care (01) ==
LOC: M INFU 07:59
DX: K51.812 Other ulcerative colitis with intestinal obstruction (principal); M12.9 Arthropathy, unspecified; Z79.899 Other long term (current) drug therapy; J30.81 Allergic rhinitis due to animal (cat) (dog) hair and dander
CPT/HCPCS: Q5102

== ENCOUNTER 2018-02-24 13:17 | Outpatient (CLI) | payer OTHER ==
[2018-02-24] MEDS: ACETAMINOPHEN TAB 650MG DOSE (2X325MG) PO (14:04)
[2018-02-24] MEDS: diphenhydrAMINE 25 MG CAP PO (14:04)
[2018-02-24] MEDS: NS 1,000 ML IV (14:24)
[2018-02-24] MEDS: inFLIXimab INJECTION 800 MG in NS 170 ML IV (14:25)
== END 2018-02-24 17:00 | disposition home or self-care (01) ==
LOC: M INFU 13:17
DX: K51.80 Other ulcerative colitis without complications (principal); M32.9 Systemic lupus erythematosus, unspecified; M12.9 Arthropathy, unspecified; Z79.899 Other long term (current) drug therapy
CPT/HCPCS: J1745

== ENCOUNTER → 2018-04-04 | Outpatient (REF) | payer OTHER ==
[2018-04-04 17:50] LABS: APPEARANCE, URINE CLEAR (CLEAR); BACTERIA, URINE AUTO NEGATIVE (NEGATIVE); BILIRUBIN, URINE AUTO NEGATIVE (NEGATIVE); BLOOD, URINE BLOOD NEGATIVE (NEGATIVE); COLOR, URINE YELLOW (YELLOW); GLUCOSE, URINE (UA) AUTO NEGATIVE (NEGATIVE); KETONE, URINE AUTO NEGATIVE (NEGATIVE); LEUKOCYTE ESTERASE, URINE AUTO TRACE (NEGATIVE); MUCUS, URINE SMALL (NEGATIVE); NITRITE, URINE AUTO NEGATIVE (NEGATIVE); PROTEIN, URINE AUTO NEGATIVE (NEGATIVE); RBC, URINE AUTO 1 /HPF (0-3); SPECIFIC GRAVITY URINE AUTO 1.008 (1.002-1.035); SQUAMOUS EPITHELIAL CELL UR AU 1 /HPF (0-6); UROBILINOGEN, URINE AUTO 0.2 mg/dL (0.0-2.0); WBC, URINE AUTO 11 /HPF (0-3)
[2018-04-04 18:14] LABS: BASO # 0.1 10^3/uL (0.0-0.2); BASO % 0.6 % (0.0-1.0); EOS # 0.2 10^3/uL (0.0-0.50); EOS % 2.6 % (0.0-3.0); HEMATOCRIT 40.6 % (36.0-47.0); HEMOGLOBIN 14.2 g/dl (12.0-15.5); IMMATURE GRANULOCYTE % 0.1 % (0-3.0); LYMPH # 3.6 10^3/uL (1.5-4.5); LYMPH % 41.7 % (24.0-44.0); MEAN CORPUSCULAR HEMOGLOBIN 34.3 pg (27.0-33.0); MEAN CORPUSCULAR VOLUME 98.1 fl (80.0-96.0); MONO # 0.7 10^3/uL (0.0-0.8); MONO % 7.9 % (0.0-5.0); NEUTROPHILS # 4.1 10^3/uL (1.8-7.7); NEUTROPHILS % 47.1 % (36.0-66.0); PLATELET COUNT, AUTOMATED 220 10^3/uL (150-450); RED BLOOD COUNT 4.14 10^6/uL (4.00-5.40); RED CELL DISTRIBUTION WIDTH 13.7 % (11.5-14.5); WHITE BLOOD COUNT 8.7 10^3/uL (4.0-10.0)
[2018-04-04 18:31] LABS: ALBUMIN 3.9 GM/DL (3.2-5.2); ALBUMIN/GLOBULIN RATIO 0.95 (1.00-1.93); ALKALINE PHOSPHATASE 83 U/L (45-117); ALT/SGPT 28 U/L (12-78); ANION GAP 9 MEQ/L (8-16); AST/SGOT 24 U/L (7-37); BILIRUBIN,TOTAL 0.4 MG/DL (0.2-1.0); BLOOD UREA NITROGEN 13 MG/DL (7-18); CALCIUM LEVEL 9.1 MG/DL (8.5-10.1); CARBON DIOXIDE LEVEL 24 MEQ/L (21-32); CHLORIDE LEVEL 106 MEQ/L (98-107); CHOLESTEROL LEVEL 167 MG/DL (<200); CHOLESTEROL RISK RATIO 3.408 (<5); CREATININE FOR GFR 0.92 MG/DL (0.55-1.30); GLOMERULAR FILTRATION RATE > 60.0 (>58); GLUCOSE, FASTING 93 MG/DL (70-100); HDL CHOLESTEROL 49 MG/DL (>40); LDL CHOLESTEROL 87.8 MG/DL (<100); MAGNESIUM LEVEL 2.3 MG/DL (1.8-2.4); NON-HDL-C 118 MG/DL; POTASSIUM SERUM 4.2 MEQ/L (3.5-5.1); SODIUM LEVEL 139 MEQ/L (136-145); TRIGLYCERIDES LEVEL 151 MG/DL (<150)
== END ==
LOC: M LAB REF 16:38
DX: R31.29 Other microscopic hematuria (principal)

== ENCOUNTER 2018-04-12 13:30 | Outpatient (CLI) | payer OTHER ==
[2018-04-12] MEDS ORDERED: diphenhydrAMINE 25 MG CAP As Ordered (13:38)
== END 2018-04-12 16:35 | disposition home or self-care (01) ==
LOC: M INFU 13:30
DX: K51.90 Ulcerative colitis, unspecified, without complications (principal); M32.9 Systemic lupus erythematosus, unspecified; M12.9 Arthropathy, unspecified; F17.210 Nicotine dependence, cigarettes, uncomplicated; Z79.899 Other long term (current) drug therapy; J30.81 Allergic rhinitis due to animal (cat) (dog) hair and dander
CPT/HCPCS: 96413

== ENCOUNTER 2018-05-24 08:30 | Outpatient (CLI) | payer OTHER ==
[~2018-05-24 08:30] MED LIST changes: +FILTER 1.2 MICRON (ADULT TPN/MANNITOL/REMICADE) XX; -METHACHOLINE KIT (J7674) INH; +NS 1,000 ML IV
[2018-05-24] MEDS: diphenhydrAMINE 25 MG CAP PO (08:52)
[2018-05-24] MEDS: ACETAMINOPHEN TAB 650MG DOSE (2X325MG) PO (08:52)
[2018-05-24] MEDS: inFLIXimab INJECTION 900 MG in NS 160 ML IV (09:00)
== END 2018-05-24 11:45 | disposition home or self-care (01) ==
LOC: M INFU 08:30
DX: K51.90 Ulcerative colitis, unspecified, without complications (principal); Z79.899 Other long term (current) drug therapy
CPT/HCPCS: J1745

== ENCOUNTER 2018-08-16 12:50 | Outpatient (CLI) | payer OTHER ==
[2018-08-16] MEDS: FILTER 1.2 MICRON (ADULT TPN/MANNITOL/REMICADE) XX (13:00)
[2018-08-16] MEDS ORDERED: NS 1,000 ML IV (13:00)
[2018-08-16] MEDS: ACETAMINOPHEN TAB 650MG DOSE (2X325MG) PO (13:59)
[2018-08-16] MEDS: diphenhydrAMINE 25 MG CAP PO (13:59)
[2018-08-16] MEDS: inFLIXimab INJECTION 900 MG in NS 160 ML IV (14:00)
== END 2018-08-16 16:50 | disposition home or self-care (01) ==
LOC: M INFU 12:50
DX: K51.90 Ulcerative colitis, unspecified, without complications (principal)
CPT/HCPCS: J1745

== ENCOUNTER → 2018-09-07 | Outpatient (REF) | payer OTHER | LOC: M LAB REF 16:57 | DX: J02.9 Acute pharyngitis, unspecified (principal) ==

== ENCOUNTER → 2018-10-25 | Outpatient (REF) | payer OTHER | LOC: M LAB REF 13:27 | DX: J02.9 Acute pharyngitis, unspecified (principal) ==

== ENCOUNTER 2018-11-08 09:30 | Outpatient (CLI) | payer OTHER ==
[~2018-11-08] VITALS: Ht 160 cm; Wt 118.0 kg
[2018-11-08] VITALS (8 sets, daily range): BP systolic 112–143; BP diastolic 56–84
[~2018-11-08 09:30] MED LIST changes: +/AMIT100TA PO; +/DULO30CA; +/DULO30CA OR; +ABIL2TAB OR; +AMIT100TA PO; +AMIT50TA4 PO; +ASACOL; +ASMA1AER3 INH; +B-1250TA3 PO; +CALCCHW12; +CALCCHW12 OR; +CETI10TA OR; +CLEO300C2 PO; +DULO30CA PO; -FILTER 1.2 MICRON (ADULT TPN/MANNITOL/REMICADE) XX; +FLUT1LOT EX; +FLUTISP; +FOLI1TAB11 PO; +FOLI5INJ2 PO; +FOLI5INJ2 SC; +FOLI800C PO; +GUAISYP5 PO; +HAIR1CAP2 PO; +HYDR-3713 PO; +INFL10VL IV; +KETO10TAB PO; +LEVA1TAB2 PO; +LYRI75CA OR; +METH1INJ PO; +METH2.5T48 PO; +METO10TA2 PO; +MULTIVIT OR; -NS 1,000 ML IV; +OMEP40CA2 PO; +PRED10TA2 PO; +PRED20TA; +PRED20TA PO; +PRENATAL VIT; +REFR0.5D8 OU; +REGL10TA6 PO; +TYLENOL #3; +TYLENOL #3 OR; +XANA0.5T; +XANA0.5T OR; +XANA0.5T PO; +ZOLO50TA; +ZYRT10CA PO
[2018-11-08] MEDS ORDERED: diphenhydrAMINE 25MG PO PRIOR TO INFUSION PO ONE (10:00)
[2018-11-08] MEDS ORDERED: FILTER 1.2 MICRON (ADULT TPN/MANNITOL/REMICADE) XX ONE (10:00)
[2018-11-08] MEDS ORDERED: inFLIXimab INJECTION 900 MG in NS 160 ML IV ONE (10:00)
[2018-11-08] MEDS ORDERED: NS 1,000 ML IV SCH (10:00)
[2018-11-08] MEDS ORDERED: ACETAMINOPHEN 650MG PO PRIOR TO INFUSION PO ONE (10:00)
== END 2018-11-08 13:10 | disposition home or self-care (01) ==
LOC: M INFU 09:30
PROVIDERS: ATTEND Internal Medicine Gastroenterology
DX: K51.90 Ulcerative colitis, unspecified, without complications (principal)
CPT/HCPCS: 96365; 96366; J1745

== ENCOUNTER → 2019-01-19 | Outpatient (REF) | payer OTHER | LOC: M LAB REF 16:41 | PROVIDERS: ATTEND Nurse Practitioner Family | DX: B34.9 Viral infection, unspecified (principal) ==

== ENCOUNTER 2019-01-31 08:30 | Emergency (ER) | payer OTHER ==
[~2019-01-31] VITALS: Ht 160 cm; Wt 106.8 kg
[2019-01-31] MEDS ORDERED: IBUP-1022 PO (08:36)
[2019-01-31] MEDS ORDERED: IPRATROPIUM 0.5MG/ALBUTEROL 2.5MG INH SOL UD 3ML (DUONEB)(J7620) NEB PRN (09:15)
[2019-01-31 10:03] LABS: INFLUENZA A AMPLIFICATION POSITIVE (NEGATIVE); INFLUENZA B AMPLIFICATION NEGATIVE (NEGATIVE)
[2019-01-31] MEDS ORDERED: ACETAMINOPHEN 325 MG TAB PO ONE (10:30)
[2019-01-31] MEDS ORDERED: PRED10TA2 PO (10:41)
[2019-01-31] MEDS ORDERED: OSEL75CA PO (10:41)
[2019-01-31 10:53] VITALS: BP 133/76
--- NOTE | 2019-02-01 08:25 | REP ---
Chest two views HISTORY: Cough Comparison: 11/23/2017 The lungs are clear. The heart is normal in size. The pulmonary vasculature is normal in appearance. The bony structure is intact. IMPRESSION: No acute disease. Electronically Signed by Marc Everett MD 01/31/2019 10:17 A
== END 2019-01-31 10:55 | disposition home or self-care (01) ==
LOC: M ED 08:30
DX: J09.X2 Influenza due to identified novel influenza A virus with other respiratory manifestations (principal); I10 Essential (primary) hypertension; J45.909 Unspecified asthma, uncomplicated; M32.9 Systemic lupus erythematosus, unspecified; F41.9 Anxiety disorder, unspecified; E78.5 Hyperlipidemia, unspecified; K21.9 Gastro-esophageal reflux disease without esophagitis; K51.90 Ulcerative colitis, unspecified, without complications; Z79.899 Other long term (current) drug therapy; Z87.891 Personal history of nicotine dependence

== ENCOUNTER → 2019-03-05 | Outpatient (REF) | payer OTHER ==
[~2019-03-05] MED LIST changes: -/AMIT100TA PO; -/DULO30CA; -/DULO30CA OR; +AMIT1TAB12 PO; +CYMB1CAP5; +CYMB1CAP5 OR; -DULO30CA PO; +DULO30CA9 PO; +IBUP-1022 PO; +OSEL75CA PO
== END ==
LOC: M LAB REF 16:54
PROVIDERS: ATTEND Nurse Practitioner Family
DX: J02.9 Acute pharyngitis, unspecified (principal)

== ENCOUNTER 2019-05-24 07:49 | Outpatient (CLI) | payer OTHER ==
[~2019-05-24] VITALS: Ht 157.5 cm; Wt 118.0 kg
[~2019-05-24 07:49] MED LIST changes: -OMEP40CA2 PO; +OMEP40CA97 PO
[2019-05-24] MEDS ORDERED: ACETAMINOPHEN 650MG PO PRIOR TO INFUSION PO ONE (08:00)
[2019-05-24] MEDS ORDERED: NS 1,000 ML IV SCH (08:00)
[2019-05-24] MEDS ORDERED: diphenhydrAMINE 25MG PO PRIOR TO INFUSION PO ONE (08:00)
[2019-05-24] MEDS ORDERED: FILTER 1.2 MICRON (ADULT TPN/MANNITOL/REMICADE) XX ONE (08:00)
[2019-05-24 08:01] VITALS: BP 139/73
[2019-05-24] MEDS ORDERED: inFLIXimab INJECTION 900 MG in NS 160 ML IV ONE (09:00)
[2019-05-24 11:03] VITALS: BP 125/68
[2019-05-24] MEDS ORDERED: SM HTAB3 PO (15:15)
[2019-11-12] MEDS ORDERED: CETI10CA2 PO (07:36)
[2019-11-12] MEDS ORDERED: VENTAER INH (07:37)
[2019-11-12] MEDS ORDERED: INFL10VL IV (07:38)
== END 2019-05-24 11:00 | disposition home or self-care (01) ==
LOC: M INFU 07:49
PROVIDERS: ATTEND Internal Medicine Gastroenterology
DX: K51.80 Other ulcerative colitis without complications (principal)
CPT/HCPCS: 96413; 96415; J1745

== ENCOUNTER 2019-08-16 06:52 | Outpatient (CLI) | payer OTHER ==
[~2019-08-16] VITALS: Ht 160 cm; Wt 118.0 kg
[~2019-08-16 06:52] MED LIST changes: +SM HTAB3 PO
[2019-08-16 07:00] VITALS: BP 144/78
[2019-08-16] MEDS ORDERED: diphenhydrAMINE 25MG PO PRIOR TO INFUSION PO ONE (07:00)
[2019-08-16] MEDS ORDERED: ACETAMINOPHEN 650MG PO PRIOR TO INFUSION PO ONE (07:00)
[2019-08-16] MEDS ORDERED: FILTER 1.2 MICRON (ADULT TPN/MANNITOL/REMICADE) XX ONE (07:30)
[2019-08-16] MEDS ORDERED: inFLIXimab INJECTION 900 MG in NS 160 ML IV ONE (07:30)
[2019-08-16] MEDS ORDERED: NS 1,000 ML IV SCH (07:30)
[2019-08-16 10:15] VITALS: BP 144/63
[2019-11-12] MEDS ORDERED: CETI10CA2 PO (07:36)
[2019-11-12] MEDS ORDERED: VENTAER INH (07:37)
[2019-11-12] MEDS ORDERED: INFL10VL IV (07:38)
== END 2019-08-16 10:15 | disposition home or self-care (01) ==
LOC: M INFU 06:52
PROVIDERS: ATTEND Internal Medicine Gastroenterology
DX: K51.90 Ulcerative colitis, unspecified, without complications (principal); Z79.899 Other long term (current) drug therapy
CPT/HCPCS: 96413; 96415; J1745

== ENCOUNTER 2019-09-27 12:56 | Outpatient (CLI) | payer OTHER ==
[2019-09-27 13:00] VITALS: BP 149/60
[2019-09-27] MEDS ORDERED: NS 1,000 ML IV SCH (13:15)
[2019-09-27] MEDS ORDERED: FILTER 1.2 MICRON (ADULT TPN/MANNITOL/REMICADE) XX ONE (13:15)
[2019-09-27] MEDS ORDERED: ACETAMINOPHEN 650MG PO PRIOR TO INFUSION PO ONE (13:30)
[2019-09-27] MEDS ORDERED: diphenhydrAMINE 25MG PO PRIOR TO INFUSION PO ONE (13:30)
[2019-09-27] MEDS ORDERED: inFLIXimab INJECTION 900 MG in NS 160 ML IV ONE (14:00)
[2019-09-27 16:00] VITALS: BP 122/76
== END 2019-09-27 16:00 | disposition home or self-care (01) ==
LOC: M INFU 12:56
PROVIDERS: ATTEND Internal Medicine Gastroenterology
DX: K51.90 Ulcerative colitis, unspecified, without complications (principal)
CPT/HCPCS: 96413; 96415; J1745

== ENCOUNTER → 2019-10-30 | Outpatient (CLI) | payer OTHER ==
--- NOTE | 2019-10-30 15:10 | REP ---
REASON: HISTORY OF ARTHRITIS AT THE LEFT KNEE. After the intravenous administration of 22.0 millicuries of technetium 99m MDP, a triple phase bone scan of the knees was obtained. The full portion of the examination shows no evidence of abnormal increased or decreased radionuclide accumulation. Blood pool imaging shows increased radionuclide accumulation in the medial left knee and slightly anteriorly. Delayed imaging shows increased radionuclide accumulation compared to the blood pool images in the same areas/areas of the left knee. IMPRESSION: Increased radionuclide accumulation seen in the left knee on two of the three phases as described above. The exact etiology is uncertain. Prior MRI examination of the left knee before and after intravenous gadolinium of 10/19/2019 showed a multitude of findings particularly evidence of a unicameral cyst in the distal femur and abnormal edema in the anterolateral distal femur. I cannot completely rule out the possibility of neoplasm. Electronically Signed by Leland Arvizu DO 10/30/2019 03:34 P
== END ==
LOC: M RAD 11:10
PROVIDERS: ATTEND Orthopaedic Surgery
DX: M23.222 Derangement of posterior horn of medial meniscus due to old tear or injury, left knee (principal); M17.12 Unilateral primary osteoarthritis, left knee
CPT/HCPCS: 78315; A9503

== ENCOUNTER 2019-12-20 12:36 | Outpatient (CLI) | payer OTHER ==
[~2019-12-20] VITALS: Ht 160 cm; Wt 118.0 kg
[~2019-12-20 12:36] MED LIST changes: +CETI10CA2 PO; +VENTAER INH
[2019-12-20 12:40] VITALS: BP 138/90
[2019-12-20] MEDS ORDERED: NS 1,000 ML IV SCH (13:00)
[2019-12-20] MEDS ORDERED: INFLIXIMAB BIOSIMILAR 900 MG in NS 160 ML IV ONE (13:00)
[2019-12-20] MEDS ORDERED: ACETAMINOPHEN 650MG PO PRIOR TO INFUSION PO ONE (13:00)
[2019-12-20] MEDS ORDERED: diphenhydrAMINE 25MG PO PRIOR TO INFUSION PO ONE (13:00)
[2019-12-20 16:00] VITALS: BP 132/62
[2019-12-21] MEDS ORDERED: TRAM50TA2 PO (14:42)
[2019-12-21] MEDS ORDERED: KETO10TAB PO (17:34)
== END 2019-12-20 16:00 | disposition home or self-care (01) ==
LOC: M INFU 12:36
PROVIDERS: ATTEND Internal Medicine Gastroenterology
DX: K51.90 Ulcerative colitis, unspecified, without complications (principal)

== ENCOUNTER 2019-12-21 14:36 | Emergency (ER) | payer OTHER ==
[~2019-12-21] VITALS: Ht 160 cm; Wt 120.1 kg
[2019-12-21] MEDS ORDERED: TRAM50TA2 PO (14:42)
[2019-12-21 15:16] LABS: BASO # 0.1 10^3/uL (0.0-0.2); BASO % 0.6 % (0.0-1.0); EOS # 0.4 10^3/uL (0.0-0.5); EOS % 3.1 % (0.0-3.0); HEMATOCRIT 38.1 % (36.0-47.0); HEMOGLOBIN 12.5 g/dl (12.0-15.5); LYMPH # 3.5 10^3/uL (1.5-5.0); LYMPH % 30.2 % (24.0-44.0); MEAN CORPUSCULAR HEMOGLOBIN 29.8 pg (27.0-33.0); MEAN CORPUSCULAR HGB CONC 32.8 g/dl (32.0-36.5); MEAN CORPUSCULAR VOLUME 90.9 fl (80.0-96.0); MONO # 0.7 10^3/uL (0.0-0.8); MONO % 6.3 % (0.0-5.0); NEUTROPHILS # 6.8 10^3/uL (1.5-8.5); NEUTROPHILS % 59.4 % (36.0-66.0); PLATELET COUNT, AUTOMATED 262 10^3/uL (150-450); RED BLOOD COUNT 4.19 10^6/uL (4.00-5.40); WHITE BLOOD COUNT 11.4 10^3/uL (4.0-10.0)
[2019-12-21] MEDS ORDERED: KETOROLAC 30 MG/ML VIAL (J1885) IV ONE (15:30)
[2019-12-21 15:44] LABS: ALBUMIN 3.6 GM/DL (3.2-5.2); ALT/SGPT 28 U/L (12-78); BILIRUBIN,DIRECT < 0.1 MG/DL (0.0-0.2); BILIRUBIN,TOTAL 0.1 MG/DL (0.2-1.0); LIPASE 141 U/L (73-393); TOTAL PROTEIN 7.2 GM/DL (6.4-8.2)
--- NOTE | 2019-12-21 16:51 | REP ---
CT of the abdomen pelvis without IV and oral contrast for right flank pain: Comparison is l2016. The visualized lung scott are unremarkable. The bilateral basilar infiltrates on the comparison study have resolved. The unenhanced hepatic parenchyma, gallbladder, pancreas, spleen, adrenals, kidneys and abdominal aorta are unremarkable. There is no periaortic adenopathy or mass. The bowel and mesentery are unremarkable. Pelvis: The terminal ileum and appendix are unremarkable. The uterus, adnexa and bladder are unremarkable. The pelvic bowel loops are unremarkable. There is no adenopathy or ascites. There is multilevel mild degenerative disc disease throughout the lumbar spine. Impression: Essentially negative CT of the abdomen and pelvis. Multilevel mild degenerative disc disease is noted throughout the spine. The bibasilar infiltrates identified on the previous study have resolved. Electronically Signed by Aleksander Lees MD 12/21/2019 04:42 P
[2019-12-21] MEDS ORDERED: KETO10TAB PO (17:34)
[2019-12-21 17:47] VITALS: BP 85/57
== END 2019-12-21 18:02 | disposition home or self-care (01) ==
LOC: M ED 14:36
DX: S23.3XXA Sprain of ligaments of thoracic spine, initial encounter (principal); X50.0XXA Overexertion from strenuous movement or load, initial encounter; M51.36 Other intervertebral disc degeneration, lumbar region; Y92.9 Unspecified place or not applicable; I10 Essential (primary) hypertension; E78.5 Hyperlipidemia, unspecified; K21.9 Gastro-esophageal reflux disease without esophagitis; J45.909 Unspecified asthma, uncomplicated; M32.9 Systemic lupus erythematosus, unspecified; Z91.048 Other nonmedicinal substance allergy status; Z79.51 Long term (current) use of inhaled steroids; Z79.891 Long term (current) use of opiate analgesic; Z79.899 Other long term (current) drug therapy
CPT/HCPCS: 74176; 80047; 80076; 81001; 83690; 85025; 96374; 99284; J1885

== ENCOUNTER 2019-12-24 09:32 | Emergency (ER) | payer OTHER ==
[~2019-12-24] VITALS: Ht 157.5 cm; Wt 120.7 kg
[~2019-12-24 09:32] MED LIST changes: +TRAM50TA2 PO
[2019-12-24] MEDS ORDERED: NS 1,000 ML IV ONE (11:15)
[2019-12-24] MEDS ORDERED: MORPHINE 4 MG/ML 1ML VIAL/SYRINGE (J2270) IV ONE (11:15)
[2019-12-24] MEDS ORDERED: ONDANSETRON 4MG/2ML VIAL (J2405) IV ONE (11:15)
[2019-12-24 11:45] LABS: BASO % 0.3 % (0.0-1.0); EOS # 0.4 10^3/uL (0.0-0.5); EOS % 3.7 % (0.0-3.0); HEMATOCRIT 38.1 % (36.0-47.0); HEMOGLOBIN 12.1 g/dl (12.0-15.5); LYMPH # 2.5 10^3/uL (1.5-5.0); LYMPH % 22.5 % (24.0-44.0); MEAN CORPUSCULAR HEMOGLOBIN 29.8 pg (27.0-33.0); MEAN CORPUSCULAR HGB CONC 31.8 g/dl (32.0-36.5); MEAN CORPUSCULAR VOLUME 93.8 fl (80.0-96.0); MONO # 0.8 10^3/uL (0.0-0.8); NEUTROPHILS # 7.3 10^3/uL (1.5-8.5); NEUTROPHILS % 66.2 % (36.0-66.0); PLATELET COUNT, AUTOMATED 240 10^3/uL (150-450); RED BLOOD COUNT 4.06 10^6/uL (4.00-5.40); WHITE BLOOD COUNT 11.1 10^3/uL (4.0-10.0)
[2019-12-24 12:21] LABS: ALBUMIN 3.5 GM/DL (3.2-5.2); ALT/SGPT 26 U/L (12-78); BILIRUBIN,DIRECT < 0.1 MG/DL (0.0-0.2); BILIRUBIN,TOTAL 0.2 MG/DL (0.2-1.0); BLOOD UREA NITROGEN 18 MG/DL (7-18); CALCIUM LEVEL 8.9 MG/DL (8.5-10.1); CARBON DIOXIDE LEVEL 29 MEQ/L (21-32); CHLORIDE LEVEL 106 MEQ/L (98-107); CREATININE FOR GFR 0.81 MG/DL (0.55-1.30); GLOMERULAR FILTRATION RATE > 60.0 (>58); GLUCOSE, FASTING 84 MG/DL (70-100); LIPASE 115 U/L (73-393); POTASSIUM SERUM 4.1 MEQ/L (3.5-5.1); SODIUM LEVEL 140 MEQ/L (136-145); TOTAL PROTEIN 7.1 GM/DL (6.4-8.2)
[2019-12-24] MEDS ORDERED: LIDO5DIS41 TOP (14:26)
[2019-12-24] MEDS ORDERED: LIDOCAINE 5% (LIDODERM) PATCH TD ONE (14:30)
[2019-12-24 14:33] VITALS: BP 141/69
--- NOTE | 2019-12-24 16:36 | REP ---
Clinical: Right upper quadrant pain. Technique: Real time banks scale ultrasound examination using curved array transducer. Findings: Liver demonstrates mild fatty infiltration without focal hepatic lesion identified. Visualized portions of the pancreas are unremarkable but limited due to interposed bowel gas. The gallbladder appears mildly contracted and without gallstones, wall thickening, or pericholecystic fluid. No biliary ductal dilatation appreciated and the common bile duct measures 2.5 mm diameter. Right kidney is normal in reniform shape without hydronephrosis and measures 10.6 x 5.1 x 4.2 cm. No ascites. Impression: Mild fatty infiltration to the liver. Electronically Signed by Efrem Apodaca MD 12/24/2019 12:11 P
[2019-12-24] MEDS ORDERED: **NOTE PATIENT COMMENT** MISC XX SCH (21:00)
== END 2019-12-24 14:35 | disposition home or self-care (01) ==
LOC: M ED 09:32
DX: M54.5 Low back pain (principal); K76.0 Fatty (change of) liver, not elsewhere classified; M13.80 Other specified arthritis, unspecified site; M32.9 Systemic lupus erythematosus, unspecified; M79.7 Fibromyalgia; K51.90 Ulcerative colitis, unspecified, without complications; Z91.048 Other nonmedicinal substance allergy status; Z79.891 Long term (current) use of opiate analgesic; Z79.899 Other long term (current) drug therapy
CPT/HCPCS: 76705; 80048; 80076; 81001; 83690; 85025; 96361; 96374; 96375; 99284; J2270; J2405

== ENCOUNTER → 2020-01-04 | Outpatient (CLI) | payer OTHER ==
[~2020-01-04] MED LIST changes: +LIDO5DIS41 TOP
--- NOTE | 2020-01-04 12:18 | REP ---
MRI ABDOMEN WITHOUT AND WITH IV CONTRAST: HISTORY: Right upper quadrant pain. Comparison sonography and CT scanning is from earlier this month. Gadolinium enhancement dose is 20 mL of intravenous ProHance. TECHNIQUE: Axial and coronal imaging planes are utilized. T1- and T2-weighted sequences include spin-echo, fast spin echo, diffusion, and dynamically acquired sequential post contrast images. MRI FINDINGS: The liver and the spleen are normal in size homogeneous in texture. No filling defect or other abnormality is noted in the gallbladder. No biliary ductal dilation is observed. No pancreatic lesion is seen. There is a transverse duodenal diverticulum noted incidentally. Normal adrenal glands are visible bilaterally. The kidneys appear morphologically intact and enhance symmetrically. No abnormal enhancement is seen in the liver, pancreas, kidneys or spleen. There is no evidence of ascites. IMPRESSION: No abnormality noted. Electronically Signed by Danilo Altman MD 01/04/2020 05:05 P
== END ==
LOC: M PLARAD 07:33
PROVIDERS: ATTEND Nurse Practitioner Family
DX: R10.11 Right upper quadrant pain (principal)

== ENCOUNTER 2020-01-25 12:55 | Outpatient (RCR) | payer OTHER | END 2020-02-12 | LOC: M PT 12:55 | PROVIDERS: ATTEND Physician Assistant Medical | DX: M23.222 Derangement of posterior horn of medial meniscus due to old tear or injury, left knee (principal); M17.12 Unilateral primary osteoarthritis, left knee ==

== ENCOUNTER 2020-01-31 12:48 | Outpatient (CLI) | payer OTHER ==
[~2020-01-31] VITALS: Ht 157.5 cm; Wt 118.0 kg
[2020-01-31 13:26] VITALS: BP 149/84
[2020-01-31] MEDS ORDERED: ACETAMINOPHEN 650MG PO PRIOR TO INFUSION PO ONE (14:00)
[2020-01-31] MEDS ORDERED: NS 1,000 ML IV SCH (14:00)
[2020-01-31] MEDS ORDERED: diphenhydrAMINE 25MG PO PRIOR TO INFUSION PO ONE (14:00)
[2020-01-31] MEDS ORDERED: INFLIXIMAB BIOSIMILAR 900 MG in NS 160 ML IV ONE (14:00)
[2020-01-31 16:00] VITALS: BP 132/70
== END 2020-01-31 16:04 | disposition home or self-care (01) ==
LOC: M INFU 12:48
PROVIDERS: ATTEND Internal Medicine Gastroenterology
DX: K51.90 Ulcerative colitis, unspecified, without complications (principal)
CPT/HCPCS: 96413; 96415; Q5103

== ENCOUNTER 2020-04-20 19:32 | Emergency (ER) | payer OTHER ==
[~2020-04-20] VITALS: Ht 160 cm; Wt 113.6 kg
[2020-04-20] MEDS ORDERED: MAGN250T7 PO (20:00)
[2020-04-20] MEDS ORDERED: ARNU1INH3 PO (20:00)
[2020-04-20] MEDS ORDERED: OXYC1TAB23 PO (20:00)
[2020-04-20] MEDS ORDERED: MORPHINE 4 MG/ML 1ML VIAL/SYRINGE (J2270) IV ONE (20:15)
[2020-04-20] MEDS ORDERED: ONDANSETRON 4MG/2ML VIAL As Ordered ONE (21:17)
[2020-04-20] MEDS ORDERED: ONDANSETRON 4MG/2ML VIAL IV ONE (21:30)
[2020-04-20 23:44] VITALS: BP 157/69
--- NOTE | 2020-04-21 10:44 | REP ---
REASON: Extreme knee pain. Recent surgical procedure. COMPARISON: 08/03/2019, which is the latest prior. There is postoperative change seen involving the distal femur. This procedure, by history, was performed six days ago. There are no other significant changes from the prior exam. Electronically Signed by Leland Arvizu DO 04/21/2020 10:58 A
== END 2020-04-21 01:03 | disposition home or self-care (01) ==
LOC: M ED 19:32
DX: G89.18 Other acute postprocedural pain (principal); M25.562 Pain in left knee; E78.5 Hyperlipidemia, unspecified; I10 Essential (primary) hypertension; M32.9 Systemic lupus erythematosus, unspecified; Z79.51 Long term (current) use of inhaled steroids; Z79.891 Long term (current) use of opiate analgesic; Z79.899 Other long term (current) drug therapy; Z87.898 Personal history of other specified conditions
CPT/HCPCS: 73564; 94760; 96374; 96375; 99284; J2270; J2405

== ENCOUNTER → 2020-05-08 | Outpatient (REF) | payer OTHER, MEDICAID ==
[~2020-05-08] MED LIST changes: +ARNU1INH3 PO; +MAGN250T7 PO; +OXYC1TAB23 PO
[2020-05-08 13:49] LABS: BASO % 0.5 % (0.0-1.0); EOS # 0.5 10^3/uL (0.0-0.5); EOS % 6.3 % (0.0-3.0); HEMATOCRIT 38.4 % (36.0-47.0); HEMOGLOBIN 12.3 g/dl (12.0-15.5); LYMPH % 39.9 % (24.0-44.0); MEAN CORPUSCULAR HEMOGLOBIN 29.4 pg (27.0-33.0); MEAN CORPUSCULAR VOLUME 91.9 fl (80.0-96.0); MONO # 0.6 10^3/uL (0.0-0.8); MONO % 8.1 % (0.0-5.0); NEUTROPHILS # 3.3 10^3/uL (1.5-8.5); NEUTROPHILS % 44.9 % (36.0-66.0); PLATELET COUNT, AUTOMATED 265 10^3/uL (150-450); RED BLOOD COUNT 4.18 10^6/uL (4.00-5.40); WHITE BLOOD COUNT 7.4 10^3/uL (4.0-10.0)
[2020-05-08 14:02] LABS: ALBUMIN 3.4 GM/DL (3.2-5.2); ALT/SGPT 16 U/L (12-78); BILIRUBIN,TOTAL 0.2 MG/DL (0.2-1.0); BLOOD UREA NITROGEN 14 MG/DL (7-18); CALCIUM LEVEL 9.2 MG/DL (8.5-10.1); CARBON DIOXIDE LEVEL 26 MEQ/L (21-32); CHLORIDE LEVEL 105 MEQ/L (98-107); CHOLESTEROL LEVEL 191 MG/DL (<200); CHOLESTEROL RISK RATIO 5.305 (<5); CREATININE FOR GFR 0.88 MG/DL (0.55-1.30); FREE T4 0.95 NG/DL (0.76-1.46); GLOMERULAR FILTRATION RATE > 60.0 (>58); GLUCOSE, FASTING 94 MG/DL (70-100); HDL CHOLESTEROL 36 MG/DL (>40); LDL CHOLESTEROL 109 MG/DL (<100); NON-HDL-C 155 MG/DL; POTASSIUM SERUM 4.2 MEQ/L (3.5-5.1); SODIUM LEVEL 137 MEQ/L (136-145); TOTAL PROTEIN 7.3 GM/DL (6.4-8.2); TRIGLYCERIDES LEVEL 230 MG/DL (<150)
[2020-05-08 15:27] LABS: HEMOGLOBIN A1c 5.8 %
== END ==
LOC: M LAB REF 13:22
PROVIDERS: ATTEND Nurse Practitioner Family
DX: M25.562 Pain in left knee (principal); J30.9 Allergic rhinitis, unspecified; F41.1 Generalized anxiety disorder; R06.09 Other forms of dyspnea; R51 Headache; E66.9 Obesity, unspecified; M25.50 Pain in unspecified joint; E78.5 Hyperlipidemia, unspecified; K21.9 Gastro-esophageal reflux disease without esophagitis

== ENCOUNTER 2020-07-17 13:03 | Outpatient (CLI) | payer OTHER ==
[~2020-07-17] VITALS: Ht 157.5 cm; Wt 125.0 kg
[~2020-07-17 13:03] MED LIST changes: +ACETAMINOPHEN 650MG PO PRIOR TO INFUSION PO ONE; +INFLIXIMAB BIOSIMILAR 900 MG in NS 160 ML IV ONE; +NS 1,000 ML IV SCH; +diphenhydrAMINE 25MG PO PRIOR TO INFUSION PO ONE
[2020-07-17 13:16] VITALS: BP 125/70
[2020-07-17 13:29] VITALS: BP 125/70
[2020-07-17] MEDS ORDERED: ACETAMINOPHEN TAB 650MG DOSE (2X325MG) As Ordered ONE (13:32)
[2020-07-17] MEDS ORDERED: diphenhydrAMINE 25MG CAP As Ordered ONE (13:32)
[2020-07-17 14:00] VITALS: BP 132/68
[2020-07-17 14:30] VITALS: BP 127/71
[2020-07-17 14:45] VITALS: BP 115/56
[2020-07-17 15:55] VITALS: BP 128/56
== END 2020-07-17 16:00 | disposition home or self-care (01) ==
LOC: M INFU 13:03
PROVIDERS: ATTEND Internal Medicine Gastroenterology
DX: K51.90 Ulcerative colitis, unspecified, without complications (principal)
CPT/HCPCS: 96413; 96415; Q5103

== ENCOUNTER 2020-07-31 13:03 | Outpatient (CLI) | payer OTHER ==
[~2020-07-31] VITALS: Ht 160 cm; Wt 125.0 kg
[2020-07-31] VITALS (9 sets, daily range): BP systolic 105–173; BP diastolic 55–89
[2020-07-31] MEDS ORDERED: ACETAMINOPHEN TAB 650MG DOSE (2X325MG) As Ordered ONE (13:26)
[2020-07-31] MEDS ORDERED: diphenhydrAMINE 25MG CAP As Ordered ONE (13:26)
== END 2020-07-31 16:00 | disposition home or self-care (01) ==
LOC: M INFU 13:03
PROVIDERS: ATTEND Internal Medicine Gastroenterology
DX: K51.90 Ulcerative colitis, unspecified, without complications (principal)
CPT/HCPCS: 96413; 96415; Q5103

== ENCOUNTER 2020-08-29 11:09 | Outpatient (CLI) | payer OTHER ==
[2020-08-29] VITALS (7 sets, daily range): BP systolic 117–148; BP diastolic 67–80
[~2020-08-29] VITALS: Ht 160 cm; Wt 125.0 kg
[~2020-08-29 11:09] MED LIST changes: -ACETAMINOPHEN 650MG PO PRIOR TO INFUSION PO ONE; -INFLIXIMAB BIOSIMILAR 900 MG in NS 160 ML IV ONE; -NS 1,000 ML IV SCH; -diphenhydrAMINE 25MG PO PRIOR TO INFUSION PO ONE
[2020-08-29] MEDS ORDERED: INFLIXIMAB BIOSIMILAR 900 MG in NS 160 ML IV ONE (11:30)
[2020-08-29] MEDS ORDERED: diphenhydrAMINE 25MG PO PRIOR TO INFUSION PO ONE (11:30)
[2020-08-29] MEDS ORDERED: ACETAMINOPHEN 650MG PO PRIOR TO INFUSION PO ONE (11:30)
[2020-08-29] MEDS ORDERED: NS 1,000 ML IV SCH (11:30)
== END 2020-08-29 14:00 | disposition home or self-care (01) ==
LOC: M INFU 11:09
PROVIDERS: ATTEND Internal Medicine Gastroenterology
DX: K51.90 Ulcerative colitis, unspecified, without complications (principal)
CPT/HCPCS: 96413; 96415; Q5103

== ENCOUNTER 2020-10-13 13:00 | Outpatient (CLI) | payer OTHER ==
[~2020-10-13] VITALS: Ht 160 cm; Wt 125.0 kg
[2020-10-13] VITALS (7 sets, daily range): BP systolic 113–138; BP diastolic 57–78
[~2020-10-13 13:00] MED LIST changes: +ACETAMINOPHEN 650MG PO PRIOR TO INFUSION PO ONE; +INFLIXIMAB BIOSIMILAR 900 MG in NS 160 ML IV ONE; +NS 1,000 ML IV SCH; +diphenhydrAMINE 25MG PO PRIOR TO INFUSION PO ONE
== END 2020-10-13 16:05 | disposition home or self-care (01) ==
LOC: M INFU 13:00
PROVIDERS: ATTEND Internal Medicine Gastroenterology
DX: K51.90 Ulcerative colitis, unspecified, without complications (principal)
CPT/HCPCS: 96365; 96366; Q5103

== ENCOUNTER 2020-11-24 12:55 | Outpatient (CLI) | payer OTHER ==
[~2020-11-24] VITALS: Ht 160 cm; Wt 125.0 kg
[~2020-11-24 12:55] MED LIST changes: -ACETAMINOPHEN 650MG PO PRIOR TO INFUSION PO ONE; -INFLIXIMAB BIOSIMILAR 900 MG in NS 160 ML IV ONE; -NS 1,000 ML IV SCH; -diphenhydrAMINE 25MG PO PRIOR TO INFUSION PO ONE
[2020-11-24] MEDS ORDERED: diphenhydrAMINE 25MG PO PRIOR TO INFUSION PO ONE (13:30)
[2020-11-24] MEDS ORDERED: NS 1,000 ML IV SCH (13:30)
[2020-11-24] MEDS ORDERED: ACETAMINOPHEN 650MG PO PRIOR TO INFUSION PO ONE (13:30)
[2020-11-24] MEDS ORDERED: INFLIXIMAB BIOSIMILAR 900 MG in NS 160 ML IV ONE (14:00)
[2020-11-24 14:25] VITALS: BP 138/78
[2020-11-24 14:39] VITALS: BP 119/77
[2020-11-24 14:55] VITALS: BP 133/84
[2020-11-24 15:10] VITALS: BP 131/83
[2020-11-24 16:42] VITALS: BP 133/77
== END 2020-11-24 16:45 | disposition home or self-care (01) ==
LOC: M INFU 12:55
PROVIDERS: ATTEND Internal Medicine Gastroenterology
DX: K51.90 Ulcerative colitis, unspecified, without complications (principal)
CPT/HCPCS: 96365; 96366; Q5103

== ENCOUNTER → 2020-12-25 | Outpatient (REF) | payer OTHER ==
[2020-12-25 19:29] LABS: APPEARANCE, URINE HAZY (CLEAR); BACTERIA, URINE AUTO 1+ (NEGATIVE); BILIRUBIN, URINE AUTO NEGATIVE (NEGATIVE); BLOOD, URINE BLOOD NEGATIVE (NEGATIVE); COLOR, URINE YELLOW (YELLOW); GLUCOSE, URINE (UA) AUTO NEGATIVE (NEGATIVE); KETONE, URINE AUTO NEGATIVE (NEGATIVE); LEUKOCYTE ESTERASE, URINE AUTO NEGATIVE (NEGATIVE); MUCUS, URINE SMALL (NEGATIVE); NITRITE, URINE AUTO NEGATIVE (NEGATIVE); PROTEIN, URINE AUTO NEGATIVE (NEGATIVE); RBC, URINE AUTO 2 /HPF (0-3); SPECIFIC GRAVITY URINE AUTO 1.021 (1.002-1.035); SQUAMOUS EPITHELIAL CELL UR AU 7 /HPF (0-6); UROBILINOGEN, URINE AUTO 0.2 mg/dL (0.0-2.0); WBC, URINE AUTO 1 /HPF (0-3)
[2020-12-25 19:32] LABS: BASO % 0.5 % (0.0-1.0); EOS # 0.3 10^3/uL (0.0-0.5); EOS % 4.3 % (0.0-3.0); HEMATOCRIT 35.6 % (36.0-47.0); LYMPH # 3.3 10^3/uL (1.5-5.0); LYMPH % 43.8 % (24.0-44.0); MEAN CORPUSCULAR HEMOGLOBIN 27.4 pg (27.0-33.0); MEAN CORPUSCULAR HGB CONC 30.9 g/dl (32.0-36.5); MEAN CORPUSCULAR VOLUME 88.6 fl (80.0-96.0); MONO # 0.5 10^3/uL (0.0-0.8); MONO % 6.7 % (0.0-5.0); NEUTROPHILS # 3.4 10^3/uL (1.5-8.5); NEUTROPHILS % 44.4 % (36.0-66.0); PLATELET COUNT, AUTOMATED 308 10^3/uL (150-450); RED BLOOD COUNT 4.02 10^6/uL (4.00-5.40); WHITE BLOOD COUNT 7.6 10^3/uL (4.0-10.0)
[2020-12-25 19:59] LABS: ALBUMIN 3.6 GM/DL (3.2-5.2); ALT/SGPT 22 U/L (12-78); BILIRUBIN,TOTAL < 0.1 MG/DL (0.2-1.0); BLOOD UREA NITROGEN 14 MG/DL (7-18); CALCIUM LEVEL 8.7 MG/DL (8.5-10.1); CARBON DIOXIDE LEVEL 27 MEQ/L (21-32); CHLORIDE LEVEL 105 MEQ/L (98-107); CHOLESTEROL LEVEL 192 MG/DL (<200); CREATININE FOR GFR 0.89 MG/DL (0.55-1.30); FERRITIN 8 NG/ML (8-252); FREE T4 0.87 NG/DL (0.76-1.46); GLOMERULAR FILTRATION RATE > 60.0 (>58); GLUCOSE, FASTING 96 MG/DL (70-100); HDL CHOLESTEROL 40 MG/DL (>40); IRON (FE) 37 UG/DL (50-170); LDL CHOLESTEROL 98 MG/DL (<100); MAGNESIUM LEVEL 2.2 MG/DL (1.8-2.4); NON-HDL-C 152 MG/DL; PERCENT SATURATION 9.8 % (13.2-45.0); POTASSIUM SERUM 4.3 MEQ/L (3.5-5.1); SODIUM LEVEL 139 MEQ/L (136-145); TOTAL IRON BINDING CAPACITY 378 UG/DL (250-450); TOTAL PROTEIN 7.4 GM/DL (6.4-8.2); TRIGLYCERIDES LEVEL 270 MG/DL (<150)
[2020-12-25 20:01] LABS: FOLATE > 24.0 NG/ML; TOTAL 25(OH) VITAMIN D 16.7 NG/ML (30.0-100.0); VITAMIN B12 LEVEL 252 PG/ML
== END ==
LOC: M LAB REF 16:11
PROVIDERS: ATTEND Nurse Practitioner Family
DX: R53.83 Other fatigue (principal); E66.9 Obesity, unspecified; G89.4 Chronic pain syndrome; E78.5 Hyperlipidemia, unspecified

== ENCOUNTER 2021-01-05 11:56 | Outpatient (CLI) | payer OTHER ==
[~2021-01-05] VITALS: Ht 157.5 cm; Wt 125.0 kg
[2021-01-05 12:05] VITALS: BP 132/70
[2021-01-05 12:10] VITALS: BP 132/70
[2021-01-05] MEDS ORDERED: NS 1,000 ML IV SCH (13:00)
[2021-01-05] MEDS ORDERED: INFLIXIMAB BIOSIMILAR 800 MG in NS 170 ML IV ONE (13:00)
[2021-01-05] MEDS ORDERED: INFLIXIMAB BIOSIMILAR 900 MG in NS 160 ML IV ONE (13:00)
[2021-01-05] MEDS ORDERED: ACETAMINOPHEN 650MG PO PRIOR TO INFUSION PO ONE (13:00)
[2021-01-05] MEDS ORDERED: diphenhydrAMINE 25MG PO PRIOR TO INFUSION PO ONE (13:00)
[2021-01-05 13:10] VITALS: BP 134/68
[2021-01-05 14:15] VITALS: BP 128/68
[2021-01-05 15:00] VITALS: BP 113/70
== END 2021-01-05 15:00 | disposition home or self-care (01) ==
LOC: M INFU 11:56
PROVIDERS: ATTEND Internal Medicine Gastroenterology
DX: K51.90 Ulcerative colitis, unspecified, without complications (principal)
CPT/HCPCS: 96365; 96366; Q5103

== ENCOUNTER 2021-02-16 12:49 | Outpatient (CLI) | payer OTHER ==
[~2021-02-16] VITALS: Ht 160 cm; Wt 125.0 kg
[2021-02-16] MEDS ORDERED: NS 1,000 ML IV SCH (13:00)
[2021-02-16] MEDS ORDERED: diphenhydrAMINE 25MG PO PRIOR TO INFUSION PO ONE (13:00)
[2021-02-16] MEDS ORDERED: ACETAMINOPHEN 650MG PO PRIOR TO INFUSION PO ONE (13:00)
[2021-02-16] MEDS ORDERED: INFLIXIMAB BIOSIMILAR 900 MG in NS 160 ML IV ONE (13:00)
[2021-02-16 13:09] VITALS: BP 144/96
[2021-02-16 14:05] VITALS: BP 124/76
[2021-02-16 14:20] VITALS: BP 122/79
[2021-02-16 14:35] VITALS: BP 124/76
[2021-02-16 14:50] VITALS: BP 132/81
[2021-02-16 15:50] VITALS: BP 139/82
== END 2021-02-16 16:13 | disposition home or self-care (01) ==
LOC: M INFU 12:49
PROVIDERS: ATTEND Internal Medicine Gastroenterology
DX: K51.90 Ulcerative colitis, unspecified, without complications (principal)
CPT/HCPCS: 96365; 96366; Q5103

== ENCOUNTER 2021-03-30 12:59 | Outpatient (CLI) | payer OTHER ==
[~2021-03-30] VITALS: Ht 160 cm; Wt 125.0 kg
[~2021-03-30 12:59] MED LIST changes: +ACETAMINOPHEN 650MG PO PRIOR TO INFUSION PO ONE; +INFLIXIMAB BIOSIMILAR 900 MG in NS 160 ML IV ONE; +NS 1,000 ML IV SCH; +diphenhydrAMINE 25MG PO PRIOR TO INFUSION PO ONE
[2021-03-30 13:00] VITALS: BP 160/84
[2021-03-30 14:19] VITALS: BP 160/84
[2021-03-30 14:45] VITALS: BP 134/69
[2021-03-30 15:30] VITALS: BP 134/76
[2021-03-30 16:30] VITALS: BP 142/68
== END 2021-03-30 16:30 | disposition home or self-care (01) ==
LOC: M INFU 12:59
PROVIDERS: ATTEND Internal Medicine Gastroenterology
DX: K51.90 Ulcerative colitis, unspecified, without complications (principal)
CPT/HCPCS: 96365; 96366; Q5103

== ENCOUNTER 2021-05-11 13:05 | Outpatient (CLI) | payer OTHER ==
[2021-05-11] VITALS (8 sets, daily range): BP systolic 127–140; BP diastolic 68–90
[~2021-05-11 13:05] MED LIST changes: +OMEP40CA4 PO; -OMEP40CA97 PO
== END 2021-05-11 16:11 | disposition home or self-care (01) ==
LOC: M INFU 13:05
PROVIDERS: ATTEND Internal Medicine Gastroenterology
DX: K51.90 Ulcerative colitis, unspecified, without complications (principal)
CPT/HCPCS: 96413; 96415; Q5103

== ENCOUNTER → 2021-06-08 | Outpatient (REF) | payer OTHER ==
[~2021-06-08] MED LIST changes: -ACETAMINOPHEN 650MG PO PRIOR TO INFUSION PO ONE; -INFLIXIMAB BIOSIMILAR 900 MG in NS 160 ML IV ONE; -NS 1,000 ML IV SCH; -diphenhydrAMINE 25MG PO PRIOR TO INFUSION PO ONE
[2021-06-08 17:48] LABS: BASO # 0.1 10^3/uL (0.0-0.2); BASO % 0.7 % (0.0-1.0); EOS # 0.3 10^3/uL (0.0-0.5); EOS % 4.5 % (0.0-3.0); HEMATOCRIT 37.9 % (36.0-47.0); HEMOGLOBIN 12.5 g/dl (12.0-15.5); LYMPH # 3.1 10^3/uL (1.5-5.0); LYMPH % 44.4 % (24.0-44.0); MEAN CORPUSCULAR HEMOGLOBIN 31.8 pg (27.0-33.0); MEAN CORPUSCULAR VOLUME 96.4 fl (80.0-96.0); MONO # 0.6 10^3/uL (0.0-0.8); MONO % 7.8 % (2.0-8.0); NEUTROPHILS % 42.5 % (36.0-66.0); PLATELET COUNT, AUTOMATED 274 10^3/uL (150-450); RED BLOOD COUNT 3.93 10^6/uL (4.00-5.40); WHITE BLOOD COUNT 7.1 10^3/uL (4.0-10.0)
[2021-06-08 18:02] LABS: HEMOGLOBIN A1c 5.3 %
[2021-06-08 18:23] LABS: ALBUMIN 3.7 GM/DL (3.2-5.2); ALT/SGPT 26 U/L (12-78); BILIRUBIN,TOTAL 0.3 MG/DL (0.2-1.0); BLOOD UREA NITROGEN 9 MG/DL (7-18); CARBON DIOXIDE LEVEL 27 MEQ/L (21-32); CHLORIDE LEVEL 105 MEQ/L (98-107); CHOLESTEROL LEVEL 176 MG/DL (<200); CHOLESTEROL RISK RATIO 5.333 (<5); CREATININE FOR GFR 0.79 MG/DL (0.55-1.30); FERRITIN 50 NG/ML (8-252); GLOMERULAR FILTRATION RATE > 60.0 (>58); GLUCOSE, FASTING 86 MG/DL (70-100); HDL CHOLESTEROL 33 MG/DL (>40); IRON (FE) 159 UG/DL (50-170); LDL CHOLESTEROL 63 MG/DL (<100); NON-HDL-C 143 MG/DL; PERCENT SATURATION 60.5 % (13.2-45.0); POTASSIUM SERUM 4.2 MEQ/L (3.5-5.1); SODIUM LEVEL 139 MEQ/L (136-145); TOTAL IRON BINDING CAPACITY 263 UG/DL (250-450); TOTAL PROTEIN 7.2 GM/DL (6.4-8.2); TRIGLYCERIDES LEVEL 398 MG/DL (<150)
[2021-06-08 18:26] LABS: TOTAL 25(OH) VITAMIN D 30.7 NG/ML (30.0-100.0)
== END ==
LOC: M LAB REF 17:00
PROVIDERS: ATTEND Nurse Practitioner Family
DX: E78.2 Mixed hyperlipidemia (principal); D50.9 Iron deficiency anemia, unspecified; E55.9 Vitamin D deficiency, unspecified

== ENCOUNTER 2021-06-22 13:18 | Outpatient (CLI) | payer OTHER ==
[~2021-06-22] VITALS: Ht 157.5 cm; Wt 125.0 kg
[~2021-06-22 13:18] MED LIST changes: +ACETAMINOPHEN 650MG PO PRIOR TO INFUSION PO ONE; +INFLIXIMAB BIOSIMILAR 900 MG in NS 160 ML IV ONE; +NS 1,000 ML IV SCH; +diphenhydrAMINE 25MG PO PRIOR TO INFUSION PO ONE
[2021-06-22 13:20] VITALS: BP 137/78
[2021-06-22 14:15] VITALS: BP 134/73
[2021-06-22 14:30] VITALS: BP 136/74
[2021-06-22 15:30] VITALS: BP 121/73
[2021-06-22 16:00] VITALS: BP_SYST 118; BP_SYST 124; BP_SYST 143; BP_DIAS 74; BP_DIAS 76
== END 2021-06-22 16:15 | disposition home or self-care (01) ==
LOC: M INFU 13:18
PROVIDERS: ATTEND Internal Medicine Gastroenterology
DX: K51.90 Ulcerative colitis, unspecified, without complications (principal)
CPT/HCPCS: 96365; 96366; Q5103

== ENCOUNTER 2021-08-03 13:19 | Outpatient (CLI) | payer OTHER ==
[2021-08-03] VITALS (7 sets, daily range): BP systolic 128–154; BP diastolic 65–88
[~2021-08-03] VITALS: Ht 160 cm; Wt 125.0 kg
[~2021-08-03 13:19] MED LIST changes: -ACETAMINOPHEN 650MG PO PRIOR TO INFUSION PO ONE
== END 2021-08-03 16:55 | disposition home or self-care (01) ==
LOC: M INFU 13:19
PROVIDERS: ATTEND Internal Medicine Gastroenterology
DX: K51.90 Ulcerative colitis, unspecified, without complications (principal)
CPT/HCPCS: 96365; 96366; Q5103

== ENCOUNTER 2021-10-27 10:21 | Outpatient (CLI) | payer OTHER ==
[~2021-10-27] VITALS: Ht 160 cm; Wt 130.0 kg
[~2021-10-27 10:21] MED LIST changes: -INFLIXIMAB BIOSIMILAR 900 MG in NS 160 ML IV ONE; -NS 1,000 ML IV SCH; -diphenhydrAMINE 25MG PO PRIOR TO INFUSION PO ONE
[2021-10-27] MEDS ORDERED: INFLIXIMAB BIOSIMILAR IV ONE (10:30)
[2021-10-27] MEDS ORDERED: ACETAMINOPHEN 650MG PO PRIOR TO INFUSION PO ONE (10:30)
[2021-10-27] MEDS ORDERED: NS IV ONE (10:30)
[2021-10-27] MEDS ORDERED: diphenhydrAMINE 25MG PO PRIOR TO INFUSION PO ONE (10:30)
[2021-10-27] MEDS ORDERED: NS 1,000 ML IV SCH (10:30)
[2021-10-27 11:11] VITALS: BP 139/88
[2021-10-27 11:30] VITALS: BP 123/70
[2021-10-27 12:00] VITALS: BP 118/77
[2021-10-27 12:15] VITALS: BP 136/74
[2021-10-27 12:45] VITALS: BP 131/85
[2021-10-27 13:29] VITALS: BP 128/76
== END 2021-10-27 13:45 | disposition home or self-care (01) ==
LOC: M INFU 10:21
PROVIDERS: ATTEND Internal Medicine Gastroenterology
DX: K51.90 Ulcerative colitis, unspecified, without complications (principal)
CPT/HCPCS: 96365; 96366; Q5103

== ENCOUNTER 2021-11-10 10:44 | Outpatient (CLI) | payer OTHER ==
[~2021-11-10] VITALS: Ht 160 cm; Wt 130.0 kg
[~2021-11-10 10:44] MED LIST changes: +ACETAMINOPHEN 650MG PO PRIOR TO INFUSION PO ONE; +INFLIXIMAB BIOSIMILAR IV ONE; +NS 1,000 ML IV SCH; +NS IV ONE; +diphenhydrAMINE 25MG PO PRIOR TO INFUSION PO ONE
[2021-11-10 11:00] VITALS: BP 146/93
[2021-11-10 12:20] VITALS: BP 138/80
[2021-11-10 13:56] VITALS: BP 152/79
== END 2021-11-10 14:00 | disposition home or self-care (01) ==
LOC: M INFU 10:44
PROVIDERS: ATTEND Internal Medicine Gastroenterology
DX: K51.90 Ulcerative colitis, unspecified, without complications (principal)
CPT/HCPCS: 96365; 96366; Q5103

== ENCOUNTER → 2022-01-15 | Outpatient (CLI) | payer OTHER ==
[~2022-01-15] MED LIST changes: -ACETAMINOPHEN 650MG PO PRIOR TO INFUSION PO ONE; -INFLIXIMAB BIOSIMILAR IV ONE; -NS 1,000 ML IV SCH; -NS IV ONE; -diphenhydrAMINE 25MG PO PRIOR TO INFUSION PO ONE
== END ==
LOC: M WUC 08:57
PROVIDERS: ATTEND Nurse Practitioner Family
DX: U07.1 COVID-19 (principal)

== ENCOUNTER 2022-02-15 10:29 | Outpatient (CLI) | payer OTHER ==
[~2022-02-15] VITALS: Ht 152.4 cm; Wt 130.0 kg
[2022-02-15] VITALS (7 sets, daily range): BP systolic 129–160; BP diastolic 63–87
[2022-02-15] MEDS ORDERED: INFLIXIMAB BIOSIMILAR IV ONE (10:30)
[2022-02-15] MEDS ORDERED: diphenhydrAMINE 25MG CAP PO ONE (10:30)
[2022-02-15] MEDS ORDERED: NS IV ONE (10:30)
[2022-02-15] MEDS ORDERED: NS 1,000 ML IV SCH (10:30)
[2022-02-15] MEDS ORDERED: ACETAMINOPHEN 650MG PO PRIOR TO INFUSION PO ONE (10:30)
== END 2022-02-15 13:55 | disposition home or self-care (01) ==
LOC: M INFU 10:29
PROVIDERS: ATTEND Internal Medicine Gastroenterology
DX: K51.90 Ulcerative colitis, unspecified, without complications (principal)
CPT/HCPCS: 96413; 96415; Q5103

== ENCOUNTER → 2022-03-16 | Outpatient (REF) | payer OTHER | LOC: M SFHCDERM 13:57 | PROVIDERS: ATTEND Nurse Practitioner Family | DX: B07.9 Viral wart, unspecified (principal) ==

== ENCOUNTER 2022-03-29 10:41 | Outpatient (CLI) | payer OTHER ==
[~2022-03-29] VITALS: Ht 160 cm; Wt 111.3 kg
[~2022-03-29 10:41] MED LIST changes: +ACETAMINOPHEN 650MG PO PRIOR TO INFUSION PO ONE; +INFLIXIMAB BIOSIMILAR IV ONE; +NS 1,000 ML IV SCH; +NS IV ONE; +diphenhydrAMINE 25MG PO PRIOR TO INFUSION PO ONE
[2022-03-29 12:00] VITALS: BP 127/87
[2022-03-29 12:30] VITALS: BP 135/78
[2022-03-29 12:45] VITALS: BP 125/72
[2022-03-29 13:15] VITALS: BP 118/72
[2022-03-29 14:10] VITALS: BP 131/72
== END 2022-03-29 14:10 | disposition home or self-care (01) ==
LOC: M INFU 10:41
PROVIDERS: ATTEND Internal Medicine Gastroenterology
DX: K51.90 Ulcerative colitis, unspecified, without complications (principal)
CPT/HCPCS: 96413; 96415; Q5103

== ENCOUNTER 2022-05-10 10:30 | Outpatient (CLI) | payer OTHER ==
[~2022-05-10] VITALS: Ht 152.4 cm; Wt 130.0 kg
[2022-05-10 10:30] VITALS: BP 148/83
[2022-05-10 10:35] VITALS: BP 148/83
[2022-05-10 11:45] VITALS: BP 166/75
[2022-05-10 12:15] VITALS: BP 129/92
[2022-05-10 13:30] VITALS: BP 139/90
== END 2022-05-10 13:30 | disposition home or self-care (01) ==
LOC: M INFU 10:30
PROVIDERS: ATTEND Internal Medicine Gastroenterology
DX: K51.90 Ulcerative colitis, unspecified, without complications (principal)
CPT/HCPCS: 96413; 96415; Q5103

== ENCOUNTER → 2022-05-27 | Outpatient (CLI) | payer OTHER ==
[~2022-05-27] MED LIST changes: -ACETAMINOPHEN 650MG PO PRIOR TO INFUSION PO ONE; -INFLIXIMAB BIOSIMILAR IV ONE; -NS 1,000 ML IV SCH; -NS IV ONE; -diphenhydrAMINE 25MG PO PRIOR TO INFUSION PO ONE
== END ==
LOC: M LABSMTC 09:39
PROVIDERS: ATTEND Anesthesiology
DX: Z01.818 Encounter for other preprocedural examination (principal); Z11.52 Encounter for screening for COVID-19

== ENCOUNTER 2022-05-31 07:35 | Day surgery (SDC) | payer OTHER ==
[~2022-05-31] VITALS: Ht 157.5 cm; Wt 110.7 kg
[~2022-05-31 07:35] MED LIST changes: +LIDOCAINE 2% 100MG/5ML SDV (FOR ANES.) As Ordered ONE; +NS 1,000 ML IV ONE; +fentaNYL 100 MCG/2 ML INJECTION As Ordered ONE; +propofoL 500 MG/50 ML VIAL As Ordered ONE
[2022-05-31 09:43] VITALS: BP 112/59
== END 2022-05-31 09:46 | disposition home or self-care (01) ==
LOC: M OPP 07:35
PROVIDERS: ATTEND Internal Medicine Gastroenterology
DX: R12 Heartburn (principal); D12.6 Benign neoplasm of colon, unspecified; D13.0 Benign neoplasm of esophagus; D13.1 Benign neoplasm of stomach; K64.0 First degree hemorrhoids; K57.30 Diverticulosis of large intestine without perforation or abscess without bleeding; K22.89 Other specified disease of esophagus; K44.9 Diaphragmatic hernia without obstruction or gangrene; K31.89 Other diseases of stomach and duodenum; K21.9 Gastro-esophageal reflux disease without esophagitis; M19.90 Unspecified osteoarthritis, unspecified site; M79.7 Fibromyalgia; F41.9 Anxiety disorder, unspecified; G43.909 Migraine, unspecified, not intractable, without status migrainosus; J45.909 Unspecified asthma, uncomplicated; Z79.51 Long term (current) use of inhaled steroids; Z79.899 Other long term (current) drug therapy
CPT/HCPCS: 43239; 45380; 88305; J3010

== ENCOUNTER 2022-06-21 10:30 | Outpatient (CLI) | payer OTHER ==
[~2022-06-21] VITALS: Ht 152.4 cm; Wt 130.0 kg
[2022-06-21 10:30] VITALS: BP 137/95
[~2022-06-21 10:30] MED LIST changes: +ACETAMINOPHEN 650MG PO PRIOR TO INFUSION PO ONE; +INFLIXIMAB BIOSIMILAR IV ONE; -LIDOCAINE 2% 100MG/5ML SDV (FOR ANES.) As Ordered ONE; -NS 1,000 ML IV ONE; +NS 1,000 ML IV SCH; +NS IV ONE; +diphenhydrAMINE 25MG PO PRIOR TO INFUSION PO ONE; -fentaNYL 100 MCG/2 ML INJECTION As Ordered ONE; -propofoL 500 MG/50 ML VIAL As Ordered ONE
[2022-06-21] MEDS ORDERED: FERR325T3 PO (11:13)
[2022-06-21 11:45] VITALS: BP 141/83
[2022-06-21 12:15] VITALS: BP 118/67
[2022-06-21 12:45] VITALS: BP 135/66
[2022-06-21 13:35] VITALS: BP 136/81
== END 2022-06-21 13:35 | disposition home or self-care (01) ==
LOC: M INFU 10:30
PROVIDERS: ATTEND Internal Medicine Gastroenterology
DX: K51.90 Ulcerative colitis, unspecified, without complications (principal)
CPT/HCPCS: 96413; 96415; Q5103

== ENCOUNTER 2022-08-02 10:40 | Outpatient (CLI) | payer OTHER ==
[2022-08-02 10:40] VITALS: BP 134/87
[~2022-08-02 10:40] MED LIST changes: +FERR325T3 PO
[2022-08-02 11:30] VITALS: BP 134/84
[2022-08-02 11:45] VITALS: BP 137/89
[2022-08-02 12:00] VITALS: BP 119/71
[2022-08-02 12:45] VITALS: BP 135/82
[2022-08-02 13:20] VITALS: BP 143/71
== END 2022-08-02 13:22 | disposition home or self-care (01) ==
LOC: M INFU 10:40
PROVIDERS: ATTEND Internal Medicine Gastroenterology
DX: K51.90 Ulcerative colitis, unspecified, without complications (principal)
CPT/HCPCS: 96413; 96415; Q5103

== ENCOUNTER 2022-09-13 10:30 | Outpatient (CLI) | payer OTHER ==
[~2022-09-13] VITALS: Ht 160 cm; Wt 110.0 kg
[2022-09-13 10:30] VITALS: BP 142/86
[2022-09-13 11:45] VITALS: BP 132/72
[2022-09-13 12:15] VITALS: BP_SYST 139; BP_SYST 145; BP_DIAS 77; BP_DIAS 83
[2022-09-13 13:40] VITALS: BP 150/85
[2022-09-13 13:45] VITALS: BP 150/85
== END 2022-09-13 13:45 | disposition home or self-care (01) ==
LOC: M INFU 10:30
PROVIDERS: ATTEND Internal Medicine Gastroenterology
DX: K51.90 Ulcerative colitis, unspecified, without complications (principal)
CPT/HCPCS: 96413; 96415; Q5103

== ENCOUNTER → 2022-09-22 | Outpatient (REF) | payer OTHER ==
[~2022-09-22] MED LIST changes: -ACETAMINOPHEN 650MG PO PRIOR TO INFUSION PO ONE; -INFLIXIMAB BIOSIMILAR IV ONE; -NS 1,000 ML IV SCH; -NS IV ONE; -diphenhydrAMINE 25MG PO PRIOR TO INFUSION PO ONE
[2022-09-22 17:05] LABS: CHOLESTEROL RISK RATIO 4.795 (<5)
== END ==
LOC: M LAB REF 16:23
PROVIDERS: ATTEND Nurse Practitioner Family
DX: R79.89 Other specified abnormal findings of blood chemistry (principal)

== ENCOUNTER 2022-10-25 12:00 | Outpatient (CLI) | payer OTHER ==
[~2022-10-25] VITALS: Ht 160 cm; Wt 130.0 kg
[2022-10-25 12:00] VITALS: BP 130/70
[~2022-10-25 12:00] MED LIST changes: +ACETAMINOPHEN 650MG PO PRIOR TO INFUSION PO ONE; +INFLIXIMAB BIOSIMILAR IV ONE; +NS 1,000 ML IV SCH; +NS IV ONE; +diphenhydrAMINE 25MG PO PRIOR TO INFUSION PO ONE
[2022-10-25] MEDS ORDERED: INFLIXIMAB BIOSIMILAR IV ONE (13:00)
[2022-10-25] MEDS ORDERED: NS IV ONE (13:00)
[2022-10-25 13:45] VITALS: BP 139/84
[2022-10-25 14:15] VITALS: BP 126/68
[2022-10-25 14:45] VITALS: BP 136/68
[2022-10-25 15:42] VITALS: BP 127/73
== END 2022-10-25 15:40 | disposition home or self-care (01) ==
LOC: M INFU 12:00
PROVIDERS: ATTEND Internal Medicine Gastroenterology
DX: K51.90 Ulcerative colitis, unspecified, without complications (principal)
CPT/HCPCS: 96413; 96415; Q5103

== ENCOUNTER 2022-12-22 09:30 | Outpatient (CLI) | payer OTHER ==
[~2022-12-22] VITALS: Ht 160 cm; Wt 100.0 kg
[2022-12-22 09:30] VITALS: BP 142/74
[~2022-12-22 09:30] MED LIST changes: -ASMA1AER3 INH; +MOME13HF5 INH
[2022-12-22 11:30] VITALS: BP 123/77
[2022-12-22 12:00] VITALS: BP 143/78
[2022-12-22 12:30] VITALS: BP 129/75
== END 2022-12-22 12:30 | disposition home or self-care (01) ==
LOC: M INFU 09:30
PROVIDERS: ATTEND Internal Medicine Gastroenterology
DX: K51.90 Ulcerative colitis, unspecified, without complications (principal); Z91.048 Other nonmedicinal substance allergy status
CPT/HCPCS: 96413; 96415; Q5103

== ENCOUNTER 2023-02-02 10:35 | Outpatient (CLI) | payer OTHER ==
[2023-02-02 10:35] VITALS: BP 144/68
[2023-02-02 12:00] VITALS: BP 99/55
[2023-02-02 12:30] VITALS: BP 125/68
[2023-02-02 13:00] VITALS: BP 122/70
[2023-02-02 14:00] VITALS: BP 129/68
== END 2023-02-02 14:00 | disposition home or self-care (01) ==
LOC: M INFU 10:35
PROVIDERS: ATTEND Internal Medicine Gastroenterology
DX: K51.90 Ulcerative colitis, unspecified, without complications (principal); Z91.048 Other nonmedicinal substance allergy status
CPT/HCPCS: 96413; 96415; Q5103

== ENCOUNTER 2023-03-16 10:31 | Outpatient (CLI) | payer OTHER ==
[~2023-03-16] VITALS: Ht 160 cm; Wt 130.0 kg
[~2023-03-16 10:31] MED LIST changes: -ACETAMINOPHEN 650MG PO PRIOR TO INFUSION PO ONE; +ACETAMINOPHEN TAB 650MG DOSE (2X325MG) PO ONE; +FLUT50SP17; -FLUTISP
[2023-03-16 10:39] VITALS: BP 138/70
[2023-03-16 12:00] VITALS: BP 127/65
[2023-03-16 12:30] VITALS: BP 133/63
[2023-03-16 13:55] VITALS: BP 122/66
== END 2023-03-16 14:00 | disposition home or self-care (01) ==
LOC: M INFU 10:31
PROVIDERS: ATTEND Internal Medicine Gastroenterology
DX: K51.90 Ulcerative colitis, unspecified, without complications (principal); Z91.048 Other nonmedicinal substance allergy status
CPT/HCPCS: 96413; 96415; Q5103

== ENCOUNTER 2023-04-29 14:01 | Outpatient (CLI) | payer OTHER ==
[~2023-04-29 14:01] MED LIST changes: +ACETAMINOPHEN 650MG PO PRIOR TO INFUSION PO ONE; +diphenhydrAMINE 25MG CAP PO ONE
[2023-04-29 14:05] VITALS: BP 129/79; O2SAT 100
[2023-04-29 15:30] VITALS: BP 137/72; O2SAT 98
[2023-04-29 16:00] VITALS: BP 133/84; O2SAT 97
[2023-04-29 17:10] VITALS: BP 116/78; O2SAT 96
== END 2023-04-29 17:10 | disposition home or self-care (01) ==
LOC: M INFU 14:01
PROVIDERS: ATTEND Internal Medicine Gastroenterology
DX: K51.90 Ulcerative colitis, unspecified, without complications (principal); Z91.048 Other nonmedicinal substance allergy status
CPT/HCPCS: 96413; 96415; Q5103

== ENCOUNTER 2023-06-08 10:25 | Outpatient (CLI) | payer OTHER ==
[~2023-06-08] VITALS: Ht 157.5 cm; Wt 108.9 kg
[2023-06-08 10:25] VITALS: BP 135/85; O2SAT 94
[~2023-06-08 10:25] MED LIST changes: -ACETAMINOPHEN 650MG PO PRIOR TO INFUSION PO ONE; -ACETAMINOPHEN TAB 650MG DOSE (2X325MG) PO ONE; +CURRENT HEIGHT AND WEIGHT NEEDED ON PATIENT XX SCH; -INFLIXIMAB BIOSIMILAR IV ONE; -NS 1,000 ML IV SCH; -NS IV ONE; -diphenhydrAMINE 25MG CAP PO ONE; -diphenhydrAMINE 25MG PO PRIOR TO INFUSION PO ONE
[2023-06-08] MEDS ORDERED: ACETAMINOPHEN 650MG PO PRIOR TO INFUSION PO ONE (10:30)
[2023-06-08] MEDS ORDERED: INFLIXIMAB BIOSIMILAR IV ONE ×2 (10:30→11:30)
[2023-06-08] MEDS ORDERED: diphenhydrAMINE 25MG PO PRIOR TO INFUSION PO ONE (10:30)
[2023-06-08] MEDS ORDERED: NS IV ONE ×2 (10:30→11:30)
[2023-06-08] MEDS ORDERED: NS 1,000 ML IV SCH (10:30)
[2023-06-08 12:30] VITALS: BP 121/70; O2SAT 97
[2023-06-08 13:00] VITALS: BP 126/66; O2SAT 97
[2023-06-08 13:50] VITALS: BP 117/55; O2SAT 97
== END 2023-06-08 13:50 ==
LOC: M INFU 10:25
PROVIDERS: ATTEND Internal Medicine Gastroenterology
DX: K51.90 Ulcerative colitis, unspecified, without complications (principal); Z91.048 Other nonmedicinal substance allergy status
CPT/HCPCS: 96413; 96415; Q5103

== ENCOUNTER 2023-06-12 05:36 | Emergency (ER) | payer OTHER ==
[~2023-06-12] VITALS: Ht 160 cm; Wt 104.5 kg
[~2023-06-12 05:36] MED LIST changes: -CURRENT HEIGHT AND WEIGHT NEEDED ON PATIENT XX SCH
[2023-06-12 06:19] LABS: HEMATOCRIT 36.2 % (36.0-47.0); HEMOGLOBIN 12.3 g/dl (12.0-15.5); MEAN CORPUSCULAR HEMOGLOBIN 31.7 pg (27.0-33.0); MEAN CORPUSCULAR VOLUME 93.3 fl (80.0-96.0); PLATELET COUNT, AUTOMATED 314 10^3/uL (150-450); RED BLOOD COUNT 3.88 10^6/uL (4.00-5.40); WHITE BLOOD COUNT 11.7 10^3/uL (4.0-10.0)
[2023-06-12 06:33] LABS: BLOOD UREA NITROGEN 13 MG/DL (9-23); CALCIUM LEVEL 8.7 MG/DL (8.5-10.1); CARBON DIOXIDE LEVEL 25 MMOL/L (20-31); CHLORIDE LEVEL 105 MMOL/L (98-107); GLOMERULAR FILTRATION RATE > 60.0 (>51); GLUCOSE, FASTING 131 MG/DL (60-100); POTASSIUM SERUM 3.7 MMOL/L (3.5-5.1); SODIUM LEVEL 140 MMOL/L (136-145)
[2023-06-12] MEDS ORDERED: diphenhydrAMINE 50MG/ML VIAL IV STA (09:57)
[2023-06-12] MEDS ORDERED: methylPREDNISolone 125MG 2ML VIAL IV ONE (10:00)
[2023-06-12] MEDS ORDERED: KETOROLAC 30 MG/ML 1ML VIAL IV ONE (10:00)
[2023-06-12] MEDS ORDERED: ISOVUE-370 76% 100ML VIAL As Ordered ONE (10:14)
[2023-06-12] MEDS ORDERED: AMPICILLIN SOD/SULBACTAM SOD 1.5 GM in D5W MINI-BAG PLUS 100 ML IV ONE (11:50)
[2023-06-12] MEDS ORDERED: PERC5TAB12 PO (13:25)
[2023-06-12] MEDS ORDERED: CLEO300C2 PO (13:25)
[2023-06-12 13:32] VITALS: BP 184/87; TEMP 98.1
[2023-06-12] MEDS ORDERED: PERCOCET 5MG/325MG TAB PO ONE (13:35)
[2023-06-12 13:41] VITALS: O2SAT 95
== END 2023-06-12 13:44 | disposition home or self-care (01) ==
LOC: M ED 05:36
DX: K04.7 Periapical abscess without sinus (principal); K21.9 Gastro-esophageal reflux disease without esophagitis; F41.9 Anxiety disorder, unspecified; F32.A Depression, unspecified; Z79.52 Long term (current) use of systemic steroids; Z79.620 Long term (current) use of immunosuppressive biologic; Z79.899 Other long term (current) drug therapy
CPT/HCPCS: 70487; 80048; 85027; 96365; 96375; 99284; J0295; J1200; J1885; J2930; Q9967

== ENCOUNTER 2023-07-20 10:40 | Outpatient (CLI) | payer OTHER ==
[~2023-07-20] VITALS: Ht 160 cm; Wt 108.2 kg
[2023-07-20 10:40] VITALS: BP 165/66; TEMP 97; O2SAT 98
[~2023-07-20 10:40] MED LIST changes: +ACETAMINOPHEN TAB 650MG DOSE (2X325MG) PO ONE; +CURRENT HEIGHT AND WEIGHT NEEDED ON PATIENT XX SCH; +NS 1,000 ML IV SCH; +PERC5TAB12 PO; +diphenhydrAMINE 25MG CAP PO ONE
[2023-07-20] MEDS ORDERED: INFLIXIMAB BIOSIMILAR 900 MG in NS 160 ML IV ONE (11:05)
[2023-07-20 12:30] VITALS: BP 131/85; O2SAT 100
[2023-07-20 13:35] VITALS: BP 126/83; O2SAT 99
== END 2023-07-20 13:35 ==
LOC: M INFU 10:40
PROVIDERS: ATTEND Internal Medicine Gastroenterology
DX: K51.90 Ulcerative colitis, unspecified, without complications (principal); Z91.048 Other nonmedicinal substance allergy status
CPT/HCPCS: 96413; 96415; Q5103

== ENCOUNTER 2023-08-31 10:30 | Outpatient (CLI) | payer OTHER ==
[~2023-08-31] VITALS: Ht 160 cm; Wt 109.2 kg
[2023-08-31 10:30] VITALS: BP 136/96; TEMP 97; O2SAT 97
[~2023-08-31 10:30] MED LIST changes: -ACETAMINOPHEN TAB 650MG DOSE (2X325MG) PO ONE; -CURRENT HEIGHT AND WEIGHT NEEDED ON PATIENT XX SCH; -NS 1,000 ML IV SCH; -diphenhydrAMINE 25MG CAP PO ONE
[2023-08-31] MEDS ORDERED: NS 1,000 ML IV SCH (10:45)
[2023-08-31] MEDS ORDERED: ACETAMINOPHEN 650MG PO PRIOR TO INFUSION PO ONE (10:45)
[2023-08-31] MEDS ORDERED: diphenhydrAMINE 25MG PO PRIOR TO INFUSION PO ONE (10:45)
[2023-08-31] MEDS ORDERED: INFLIXIMAB BIOSIMILAR 900 MG in NS 160 ML IV ONE (10:45)
[2023-08-31 12:10] VITALS: BP 126/78; O2SAT 96
[2023-08-31 12:40] VITALS: BP 133/94; TEMP 97.6; O2SAT 99
[2023-08-31 13:10] VITALS: BP 127/83; TEMP 97.4; O2SAT 98
[2023-08-31 13:50] VITALS: BP 145/79; TEMP 97; O2SAT 99
== END 2023-08-31 14:00 ==
LOC: M INFU 10:30
PROVIDERS: ATTEND Internal Medicine Gastroenterology
DX: K51.90 Ulcerative colitis, unspecified, without complications (principal); Z91.048 Other nonmedicinal substance allergy status
CPT/HCPCS: 96413; 96415; Q5103

== ENCOUNTER 2023-10-12 10:40 | Outpatient (CLI) | payer OTHER ==
[~2023-10-12] VITALS: Ht 160 cm; Wt 109.1 kg
[2023-10-12 10:40] VITALS: BP 124/65; O2SAT 97
[2023-10-12] MEDS ORDERED: INFLIXIMAB BIOSIMILAR 900 MG in NS 160 ML IV ONE (11:05)
[2023-10-12] MEDS ORDERED: ACETAMINOPHEN 650MG PO PRIOR TO INFUSION PO ONE (11:05)
[2023-10-12] MEDS ORDERED: diphenhydrAMINE 25MG PO PRIOR TO INFUSION PO ONE (11:05)
[2023-10-12] MEDS ORDERED: NS 1,000 ML IV SCH (11:05)
[2023-10-12 12:15] VITALS: BP 121/67; O2SAT 100
[2023-10-12 13:00] VITALS: BP 128/66; O2SAT 99
[2023-10-12 14:00] VITALS: BP 132/76; O2SAT 100
== END 2023-10-12 14:00 | disposition home or self-care (01) ==
LOC: M INFU 10:40
PROVIDERS: ATTEND Internal Medicine Gastroenterology
DX: K51.90 Ulcerative colitis, unspecified, without complications (principal)
CPT/HCPCS: 96413; 96415; Q5103

== ENCOUNTER 2023-12-02 08:24 | Outpatient (CLI) | payer OTHER ==
[~2023-12-02] VITALS: Ht 157.5 cm; Wt 113.1 kg
[~2023-12-02 08:24] MED LIST changes: +ACETAMINOPHEN 650MG PO PRIOR TO INFUSION PO ONE; -FLUT50SP17; +FLUTISP; +INFLIXIMAB BIOSIMILAR 900 MG in NS 160 ML IV ONE; +NS 1,000 ML IV SCH; +diphenhydrAMINE 25MG PO PRIOR TO INFUSION PO ONE
[2023-12-02 08:30] VITALS: BP 157/88; O2SAT 96
[2023-12-02 10:00] VITALS: BP 130/82; O2SAT 97
[2023-12-02 11:30] VITALS: BP 131/60; O2SAT 98
== END 2023-12-02 11:30 | disposition home or self-care (01) ==
LOC: M INFU 08:24
PROVIDERS: ATTEND Internal Medicine Gastroenterology
DX: K51.90 Ulcerative colitis, unspecified, without complications (principal); Z91.048 Other nonmedicinal substance allergy status
CPT/HCPCS: 96413; 96415; Q5103

== ENCOUNTER → 2023-12-28 | Outpatient (REF) | payer OTHER ==
[~2023-12-28] MED LIST changes: -ACETAMINOPHEN 650MG PO PRIOR TO INFUSION PO ONE; -INFLIXIMAB BIOSIMILAR 900 MG in NS 160 ML IV ONE; -NS 1,000 ML IV SCH; -diphenhydrAMINE 25MG PO PRIOR TO INFUSION PO ONE
[2023-12-28 14:06] LABS: BASO # 0.1 10^3/uL (0.0-0.2); BASO % 0.8 % (0.0-1.0); EOS # 0.4 10^3/uL (0.0-0.5); EOS % 4.1 % (0.0-3.0); HEMATOCRIT 43.3 % (36.0-47.0); HEMOGLOBIN 14.3 g/dl (12.0-15.5); LYMPH # 4.5 10^3/uL (1.5-5.0); LYMPH % 52.5 % (24.0-44.0); MEAN CORPUSCULAR VOLUME 93.7 fl (80.0-96.0); MONO # 0.6 10^3/uL (0.0-0.8); MONO % 6.4 % (2.0-8.0); NEUTROPHILS # 3.1 10^3/uL (1.5-8.5); NEUTROPHILS % 35.9 % (36.0-66.0); PLATELET COUNT, AUTOMATED 263 10^3/uL (150-450); RED BLOOD COUNT 4.62 10^6/uL (4.00-5.40); WHITE BLOOD COUNT 8.6 10^3/uL (4.0-10.0)
[2023-12-28 14:17] LABS: HEMOGLOBIN A1c 5.5 % (4.0-6.0)
[2023-12-28 14:39] LABS: ALBUMIN 3.7 G/DL (3.2-5.2); ALKALINE PHOSPHATASE 80 U/L (46-116); ALT/SGPT 18 U/L (7.0-40); AST/SGOT 14 U/L (<34); BILIRUBIN,TOTAL 0.2 MG/DL (0.3-1.2); BLOOD UREA NITROGEN 19 MG/DL (9-23); CALCIUM LEVEL 8.9 MG/DL (8.5-10.1); CARBON DIOXIDE LEVEL 30 MMOL/L (20-31); CHLORIDE LEVEL 105 MMOL/L (98-107); CHOLESTEROL LEVEL 179 MG/DL (<200); CHOLESTEROL RISK RATIO 5.32 (<5); CREATININE FOR GFR 0.88 MG/DL (0.55-1.30); GLOMERULAR FILTRATION RATE > 60.0 (>51); GLUCOSE, FASTING 88 MG/DL (60-100); HDL CHOLESTEROL 33.6 MG/DL (>40); LDL CHOLESTEROL 104.6 MG/DL (<100); NON-HDL-C 145.4 MG/DL; POTASSIUM SERUM 4.5 MMOL/L (3.5-5.1); SODIUM LEVEL 137 MMOL/L (136-145); TOTAL PROTEIN 6.6 G/DL (5.7-8.2); TRIGLYCERIDES LEVEL 204 MG/DL (<150)
[2023-12-28 14:42] LABS: TOTAL 25(OH) VITAMIN D 28.4 NG/ML (20.0-100.0)
== END ==
LOC: M LAB REF 11:58
PROVIDERS: ATTEND Nurse Practitioner Family
DX: E78.5 Hyperlipidemia, unspecified (principal); Z13.228 Encounter for screening for other metabolic disorders

== ENCOUNTER 2024-01-16 11:15 | Outpatient (CLI) | payer OTHER ==
[~2024-01-16] VITALS: Ht 160 cm; Wt 109.0 kg
[~2024-01-16 11:15] MED LIST changes: +NS 1,000 ML IV SCH
[2024-01-16] MEDS: diphenhydrAMINE 25MG PO PRIOR TO INFUSION PO ONE (11:54)
[2024-01-16] MEDS: ACETAMINOPHEN 650MG PO PRIOR TO INFUSION PO ONE (11:56)
[2024-01-16] MEDS: INFLIXIMAB BIOSIMILAR 900 MG in NS 160 ML IV ONE (12:09)
[2024-01-16 17:11] VITALS: BP 113/56; O2SAT 100
== END 2024-01-16 14:25 | disposition home or self-care (01) ==
LOC: M INFU 11:15
PROVIDERS: ATTEND Internal Medicine Gastroenterology
DX: K51.90 Ulcerative colitis, unspecified, without complications (principal); Z91.048 Other nonmedicinal substance allergy status
CPT/HCPCS: 96413; 96415; Q5103

== ENCOUNTER → 2024-02-02 | Outpatient (CLI) | payer OTHER ==
[~2024-02-02] MED LIST changes: -NS 1,000 ML IV SCH
[2024-02-02 14:01] LABS: BASO # 0.1 10^3/uL (0.0-0.2); BASO % 0.7 % (0.0-1.0); EOS # 0.7 10^3/uL (0.0-0.5); EOS % 6.6 % (0.0-3.0); HEMATOCRIT 42.3 % (36.0-47.0); LYMPH # 4.5 10^3/uL (1.5-5.0); LYMPH % 45.2 % (24.0-44.0); MEAN CORPUSCULAR HEMOGLOBIN 31.2 pg (27.0-33.0); MEAN CORPUSCULAR HGB CONC 33.1 g/dl (32.0-36.5); MEAN CORPUSCULAR VOLUME 94.2 fl (80.0-96.0); MONO # 0.5 10^3/uL (0.0-0.8); MONO % 5.1 % (2.0-8.0); NEUTROPHILS # 4.2 10^3/uL (1.5-8.5); NEUTROPHILS % 42.1 % (36.0-66.0); PLATELET COUNT, AUTOMATED 285 10^3/uL (150-450); RED BLOOD COUNT 4.49 10^6/uL (4.00-5.40); WHITE BLOOD COUNT 9.9 10^3/uL (4.0-10.0)
[2024-02-02 14:23] LABS: ERYTHROCYTE SEDIMENTATION RATE 24 mm/hr (0-30)
[2024-02-02 14:25] LABS: RHEUMATOID FACTOR QUANT 6.9 IU/ML (<14)
[2024-02-02 14:26] LABS: ALBUMIN 3.8 G/DL (3.2-5.2); ALKALINE PHOSPHATASE 76 U/L (46-116); ALT/SGPT 32 U/L (7.0-40); AST/SGOT 18 U/L (<34); BILIRUBIN,TOTAL 0.3 MG/DL (0.3-1.2); BLOOD UREA NITROGEN 20 MG/DL (9-23); CALCIUM LEVEL 8.9 MG/DL (8.5-10.1); CARBON DIOXIDE LEVEL 28 MMOL/L (20-31); CHLORIDE LEVEL 103 MMOL/L (98-107); CREATININE FOR GFR 0.76 MG/DL (0.55-1.30); GLOMERULAR FILTRATION RATE > 60.0 (>51); GLUCOSE, FASTING 123 MG/DL (60-100); POTASSIUM SERUM 4.4 MMOL/L (3.5-5.1); SODIUM LEVEL 137 MMOL/L (136-145); TOTAL PROTEIN 6.7 G/DL (5.7-8.2)
== END ==
LOC: M WUC 09:40
PROVIDERS: ATTEND Nurse Practitioner Family
DX: M54.50 Low back pain, unspecified (principal); M32.9 Systemic lupus erythematosus, unspecified

== ENCOUNTER 2024-02-27 11:00 | Outpatient (CLI) | payer OTHER ==
[~2024-02-27] VITALS: Ht 160 cm; Wt 113.3 kg
[2024-02-27 11:00] VITALS: BP 130/75; O2SAT 98
[~2024-02-27 11:00] MED LIST changes: +NS 1,000 ML IV SCH
[2024-02-27] MEDS: ACETAMINOPHEN 650MG PO PRIOR TO INFUSION PO ONE (11:13)
[2024-02-27] MEDS: diphenhydrAMINE 25MG PO PRIOR TO INFUSION PO ONE (11:13)
[2024-02-27] MEDS: INFLIXIMAB BIOSIMILAR 900 MG in NS 160 ML IV ONE (11:40)
[2024-02-27 13:40] VITALS: BP 122/59; O2SAT 98
== END 2024-02-27 13:10 ==
LOC: M INFU 11:00
PROVIDERS: ATTEND Internal Medicine Gastroenterology
DX: K51.90 Ulcerative colitis, unspecified, without complications (principal); Z91.048 Other nonmedicinal substance allergy status
CPT/HCPCS: 96413; 96415; Q5103

== ENCOUNTER 2024-05-09 10:52 | Outpatient (CLI) | payer OTHER ==
[~2024-05-09] VITALS: Ht 160 cm; Wt 111.0 kg
[~2024-05-09 10:52] MED LIST changes: -NS 1,000 ML IV SCH
[2024-05-09 11:00] VITALS: BP 187/82; O2SAT 96
[2024-05-09] MEDS ORDERED: NS 1,000 ML IV SCH (11:00)
[2024-05-09] MEDS: ACETAMINOPHEN 650MG PO PRIOR TO INFUSION PO ONE (11:23)
[2024-05-09] MEDS: diphenhydrAMINE 25MG PO PRIOR TO INFUSION PO ONE (11:23)
[2024-05-09] MEDS: INFLIXIMAB BIOSIMILAR 900 MG in NS 160 ML IV ONE (11:45)
[2024-05-09 12:54] VITALS: BP 122/65; O2SAT 99
[2024-05-09 13:20] VITALS: BP 134/73; O2SAT 99
== END 2024-05-09 13:20 | disposition home or self-care (01) ==
LOC: M INFU 10:52
PROVIDERS: ATTEND Internal Medicine Gastroenterology
DX: K51.90 Ulcerative colitis, unspecified, without complications (principal); Z91.048 Other nonmedicinal substance allergy status
CPT/HCPCS: 96413; 96415; Q5103

== ENCOUNTER 2024-06-22 11:30 | Outpatient (CLI) | payer OTHER ==
[~2024-06-22] VITALS: Ht 160 cm; Wt 110.9 kg
[~2024-06-22 11:30] MED LIST changes: +NS 1,000 ML IV SCH
[2024-06-22 11:34] VITALS: BP 151/77; TEMP 96.3; O2SAT 97
[2024-06-22] MEDS: ACETAMINOPHEN 650MG PO PRIOR TO INFUSION PO ONE (11:41)
[2024-06-22] MEDS: diphenhydrAMINE 25MG PO PRIOR TO INFUSION PO ONE (11:41)
[2024-06-22] MEDS: INFLIXIMAB BIOSIMILAR 900 MG in NS 160 ML IV ONE (12:27)
[2024-06-22 13:00] VITALS: BP 128/72; O2SAT 99
[2024-06-22 13:30] VITALS: BP 131/72; O2SAT 98
[2024-06-22 15:09] VITALS: BP 123/70; O2SAT 99
== END 2024-06-22 14:05 ==
LOC: M INFU 11:30
PROVIDERS: ATTEND Internal Medicine Gastroenterology
DX: K51.90 Ulcerative colitis, unspecified, without complications (principal); Z91.048 Other nonmedicinal substance allergy status
CPT/HCPCS: 96413; 96415; Q5103

== ENCOUNTER → 2024-08-03 | Outpatient (CLI) | payer OTHER ==
[~2024-08-03] VITALS: Ht 152.4 cm; Wt 109.5 kg
[2024-08-03 11:20] VITALS: BP 125/76; O2SAT 97
[2024-08-03] MEDS: diphenhydrAMINE 25MG PO PRIOR TO INFUSION PO ONE (11:35)
[2024-08-03] MEDS: ACETAMINOPHEN 650MG PO PRIOR TO INFUSION PO ONE (11:35)
[2024-08-03] MEDS: INFLIXIMAB BIOSIMILAR 900 MG in NS 160 ML IV ONE (12:10)
[2024-08-03 14:10] VITALS: BP 135/82; O2SAT 98
== END ==
LOC: M INFU 11:08
PROVIDERS: ATTEND Internal Medicine Gastroenterology
DX: K51.90 Ulcerative colitis, unspecified, without complications (principal); Z91.048 Other nonmedicinal substance allergy status
CPT/HCPCS: 96413; 96415; Q5103

== ENCOUNTER → 2024-09-14 | Outpatient (CLI) | payer OTHER ==
[~2024-09-14] MED LIST changes: -NS 1,000 ML IV SCH
== END ==
LOC: M SOG 07:50
PROVIDERS: ATTEND Orthopaedic Surgery
DX: M54.50 Low back pain, unspecified (principal); Z53.9 Procedure and treatment not carried out, unspecified reason

== ENCOUNTER → 2024-09-21 | Outpatient (CLI) | payer OTHER | LOC: M SOG 08:05 | PROVIDERS: ATTEND Orthopaedic Surgery | DX: M54.50 Low back pain, unspecified (principal) ==

== ENCOUNTER → 2024-12-01 | Outpatient (CLI) | payer OTHER | LOC: M RAD 14:29 | PROVIDERS: ATTEND Student in an Organized Health Care Education/Training Program | DX: M43.16 Spondylolisthesis, lumbar region (principal); G89.29 Other chronic pain; M51.360 Other intervertebral disc degeneration, lumbar region with discogenic back pain only ==

== ENCOUNTER → 2024-12-18 | Outpatient (CLI) | payer OTHER ==
[2024-12-18 17:05] LABS: ALBUMIN 3.6 G/DL (3.2-5.2); ALKALINE PHOSPHATASE 74 U/L (35-104); ALT/SGPT 19 U/L (7.0-40); AST/SGOT 11 U/L (<34); BILIRUBIN,TOTAL < 0.2 MG/DL (0.3-1.2); BLOOD UREA NITROGEN 20 MG/DL (9-23); CALCIUM LEVEL 9.1 MG/DL (8.5-10.1); CARBON DIOXIDE LEVEL 26 MMOL/L (20-31); CHLORIDE LEVEL 107 MMOL/L (98-107); CREATININE FOR GFR 0.84 MG/DL (0.55-1.30); GLOMERULAR FILTRATION RATE > 60.0 (>51); GLUCOSE, FASTING 102 MG/DL (60-100); POTASSIUM SERUM 3.7 MMOL/L (3.5-5.1); SODIUM LEVEL 144 MMOL/L (136-145); TOTAL PROTEIN 6.8 G/DL (5.7-8.2)
[2024-12-18 17:15] LABS: HEMOGLOBIN 12.5 g/dl (12.0-15.5); MEAN CORPUSCULAR HGB CONC 32.9 g/dl (32.0-36.5); MEAN CORPUSCULAR VOLUME 94.3 fl (80.0-96.0); PLATELET COUNT, AUTOMATED 282 10^3/uL (150-450); RED BLOOD COUNT 4.03 10^6/uL (4.00-5.40); WHITE BLOOD COUNT 12.1 10^3/uL (4.0-10.0)
== END ==
LOC: M WUC 13:19
PROVIDERS: ATTEND Nurse Practitioner Family
DX: R61 Generalized hyperhidrosis (principal)

== ENCOUNTER → 2024-12-18 | Outpatient (CLI) | payer OTHER ==
[2024-12-18 17:06] LABS: ALBUMIN 3.5 G/DL (3.2-5.2); ALKALINE PHOSPHATASE 74 U/L (35-104); ALT/SGPT 19 U/L (7.0-40); AST/SGOT 10 U/L (<34); BILIRUBIN,TOTAL < 0.2 MG/DL (0.3-1.2); BLOOD UREA NITROGEN 20 MG/DL (9-23); CALCIUM LEVEL 9.1 MG/DL (8.5-10.1); CARBON DIOXIDE LEVEL 26 MMOL/L (20-31); CHLORIDE LEVEL 107 MMOL/L (98-107); CHOLESTEROL LEVEL 137 MG/DL (<200); CHOLESTEROL RISK RATIO 3.06 (<5); CREATININE FOR GFR 0.84 MG/DL (0.55-1.30); GLOMERULAR FILTRATION RATE > 60.0 (>51); GLUCOSE, FASTING 104 MG/DL (60-100); HDL CHOLESTEROL 44.7 MG/DL (>40); LDL CHOLESTEROL 51.5 MG/DL (<100); NON-HDL-C 92.3 MG/DL; POTASSIUM SERUM 3.7 MMOL/L (3.5-5.1); SODIUM LEVEL 144 MMOL/L (136-145); TOTAL PROTEIN 6.8 G/DL (5.7-8.2); TRIGLYCERIDES LEVEL 204 MG/DL (<150)
[2024-12-18 17:08] LABS: THYROID STIMULATING HORMONE 1.757 uIU/ML (0.55-4.78)
[2024-12-18 17:15] LABS: BASO % 0.3 % (0.0-1.0); EOS # 0.2 10^3/uL (0.0-0.5); EOS % 1.8 % (0.0-3.0); HEMATOCRIT 37.9 % (36.0-47.0); HEMOGLOBIN 12.6 g/dl (12.0-15.5); LYMPH % 32.3 % (24.0-44.0); MEAN CORPUSCULAR HEMOGLOBIN 31.3 pg (27.0-33.0); MEAN CORPUSCULAR HGB CONC 33.2 g/dl (32.0-36.5); MEAN CORPUSCULAR VOLUME 94.3 fl (80.0-96.0); MONO # 0.7 10^3/uL (0.0-0.8); NEUTROPHILS # 7.3 10^3/uL (1.5-8.5); NEUTROPHILS % 59.1 % (36.0-66.0); PLATELET COUNT, AUTOMATED 286 10^3/uL (150-450); RED BLOOD COUNT 4.02 10^6/uL (4.00-5.40); WHITE BLOOD COUNT 12.3 10^3/uL (4.0-10.0)
[2024-12-18 17:43] LABS: HEMOGLOBIN A1c 5.8 % (4.0-6.0)
== END ==
LOC: M WUC 13:16
PROVIDERS: ATTEND Nurse Practitioner Family
DX: E66.01 Morbid (severe) obesity due to excess calories (principal)

== ENCOUNTER → 2025-09-02 | Outpatient (CLI) | payer OTHER ==
[~2025-09-02] MED LIST changes: -IBUP-1022 PO; +IBUP600T42 PO; +LIDO1ADH93 TOP; -LIDO5DIS41 TOP
== END ==
LOC: M WUC 09:53
PROVIDERS: ATTEND Student in an Organized Health Care Education/Training Program
DX: M79.672 Pain in left foot (principal); Z53.9 Procedure and treatment not carried out, unspecified reason

== ENCOUNTER → 2025-09-20 | Outpatient (CLI) | payer OTHER ==
[2025-09-20 14:51] LABS: BASO # 0.1 10^3/uL (0.0-0.2); BASO % 0.6 % (0.0-1.0); EOS # 0.3 10^3/uL (0.0-0.5); EOS % 3.0 % (0.0-3.0); LYMPH # 3.7 10^3/uL (1.5-5.0); LYMPH % 35.0 % (24.0-44.0); MONO # 0.6 10^3/uL (0.0-0.8); MONO % 6.1 % (2.0-8.0); NEUTROPHILS # 5.8 10^3/uL (1.5-8.5); NEUTROPHILS % 55.0 % (36.0-66.0); PLATELET COUNT, AUTOMATED 270 10^3/uL (150-450)
[2025-09-20 15:22] LABS: ALT/SGPT 21 U/L (7.0-40); AST/SGOT 17 U/L (<34); CALCIUM LEVEL 8.8 MG/DL (8.5-10.1); CARBON DIOXIDE LEVEL 26 MMOL/L (20-31); CHLORIDE LEVEL 108 MMOL/L (98-107); CHOLESTEROL LEVEL 124 MG/DL (<200); CHOLESTEROL RISK RATIO 3.69 (<5); CREATININE FOR GFR 0.75 MG/DL (0.55-1.30); GLOMERULAR FILTRATION RATE > 90.0 (>51); LDL CHOLESTEROL 38.8 MG/DL (<100); NON-HDL-C 90.4 MG/DL; POTASSIUM SERUM 3.7 MMOL/L (3.5-5.1); SODIUM LEVEL 143 MMOL/L (136-145); TRIGLYCERIDES LEVEL 258 MG/DL (<150)
== END ==
LOC: M WUC 12:49
PROVIDERS: ATTEND Student in an Organized Health Care Education/Training Program
DX: M79.671 Pain in right foot (principal); E61.1 Iron deficiency; E78.5 Hyperlipidemia, unspecified; M19.071 Primary osteoarthritis, right ankle and foot; M77.31 Calcaneal spur, right foot; M77.51 Other enthesopathy of right foot and ankle